=== PATIENT | female | born 1955 | race Caucasian/White ===

== ENCOUNTER 2020-10-23 07:49 | Outpatient (CLI) | payer MEDICARE, SELFPAY ==
[2020-10-23 08:51] LABS: Basophils Absolute Auto 0.1 K/mm3 (0.0-0.1); Basophils Percent Auto 0.6 % (0.2-1.2); Eosinophils Absolute Auto 0.4 K/mm3 (0-0.3); Eosinophils Percent Auto 2.6 % (0-4.4); Hematocrit 36.2 % (37.0-47.0); Hemoglobin 11.1 g/dL (12.0-15.0); Immature Granulocyte Absolute 0.04 K/mm3 (0.00-0.031); Immature Granulocyte Percent A 0.3 % (0-0.5); Lymphocytes Absolute Auto 4.73 K/mm3 (0.9-3.2); Lymphocytes Percent Auto 32.8 % (18.3-44.2); Mean Corpuscular HGB Conc 30.7 g/dl (32-36); Mean Corpuscular Hemoglobin 27.3 pg (26-34); Mean Corpuscular Volume 88.9 fl (80-100); Mean Platelet Volume 11.5 fl (7.4-10.4); Monocytes Absolute Auto 1.5 K/mm3 (0.1-0.6); Monocytes Percent Auto 10.2 % (2.6-8.5); Neutrophils Absolute Auto 7.7 K/mm3 (1.3-6.7); Neutrophils Percent Auto 53.5 % (45.5-73.1); Platelet Count Result 324 k/mm3 (150-375); Red Blood Count 4.07 M/mm3 (4.2-5.4); Red Cell Distribution Width 16.9 % (11.5-14.5); White Blood Count 14.4 K/mm3 (4.5-10.0)
[2020-10-23 09:00] LABS: Hemoglobin A1C 10.1 % (<5.7)
[2020-10-23 09:04] LABS: Alanine Aminotransferase 17 U/L (4-35); Albumin Level 3.5 g/dL (3.5-5.1); Alkaline Phosphatase 86 U/L (38-126); Anion Gap 6 mmol/L (8-16); Aspartate Amino Transferase 24 U/L (14-36); Bilirubin,Total 0.3 mg/dL (0.2-1.3); Blood Urea Nitrogen 30 mg/dL (7-17); Carbon Dioxide 37 mmol/L (22-30); Chloride 94 mmol/L (98-107); Cholesterol 137 mg/dL (0-200); Estimated Glomerular Filt Rate 24; Glucose 222 mg/dL (65-105); HDL Direct 37 mg/dL; Potassium 4.2 mmol/L (3.4-5.0); Sodium 137 mmol/L (137-145); Triglycerides 354 mg/dL (<150)
[2020-10-23 09:05] LABS: Albumin Level 3.5 g/dL (3.5-5.1); Anion Gap 5 mmol/L (8-16); Blood Urea Nitrogen 31 mg/dL (7-17); Carbon Dioxide 36 mmol/L (22-30); Chloride 96 mmol/L (98-107); Estimated Glomerular Filt Rate 24; Glucose 222 mg/dL (65-105); Magnesium 2.5 mg/dL (1.6-2.3); Phosphorus 5.2 mg/dL (2.5-4.5); Potassium 4.2 mmol/L (3.4-5.0); Sodium 137 mmol/L (137-145)
[2020-10-23 09:15] LABS: LDL Cholesterol Direct 40 mg/dL; Parathyroid Intact 224.2 pg/mL (7.5-53.5)
[2020-10-23 09:45] LABS: Free T4 Free Thyroxine 1.01 ng/mL (0.78-2.19)
[2020-10-23 09:53] LABS: Add Urine Microscopic? YES; Appearance Urine Clear (Clear); Bacteria Urine Trace /hpf; Bilirubin Urine Negative (Negative); Blood Urine Negative (Negative); Color Urine Yellow (Yellow); Glucose Urine UA 3+ mg/dL (Negative); Ketones Urine Negative (Negative); Leukocyte Esterase Ur Negative LEU/UL (NEGATIVE); Nitrate Urine Negative (Negative); Protein Urine 3+ mg/dL (Negative); RBC Urine 0-2 /hpf (0-2); Specific Grav Ur 1.016 (1.001-1.035); Squamous Epithelial Cell Urine Moderate /hpf (Few); Urobilinogen Urine Negative mg/dL (<2.0)
[2020-10-23 10:04] LABS: Vitamin D 25 Hydroxy < 12.8 ng/mL
[2020-10-23 11:39] LABS: Microalbumin Urine Random > 1140.0 mg/L (0-16.7)
== END 2020-10-23 07:50 | disposition home or self-care (01) ==
PROVIDERS: PCP Internal Medicine; Referring Provider Internal Medicine Nephrology; Visit Provider Nurse Practitioner
DX: E78.2 Mixed hyperlipidemia (principal); Z79.899 Other long term (current) drug therapy; E11.42 Type 2 diabetes mellitus with diabetic polyneuropathy; Z79.4 Long term (current) use of insulin; E55.9 Vitamin D deficiency, unspecified; R25.2 Cramp and spasm; N18.4 Chronic kidney disease, stage 4 (severe)
CPT/HCPCS: 36415; 80053; 80061; 80069; 81001; 82043; 82306; 83036; 83735; 83970; 84439; 84443; 84550; 85025

== ENCOUNTER 2021-01-04 10:22 | Outpatient (CLI) | payer MEDICARE, SELFPAY ==
--- NOTE | 2021-01-04 16:17 | P.NEURO_ITS ---
Neurology EEG Report TEST EEG DIAGNOSIS tremors CONDITION OF RECORDING awake drowsy and sleep CLINICAL HISTORY patient reported she has been having tremors for a while and seemed to be get ting worse. EEG DESCRIPTION basic resting occipital frequency consists of small amount of fairly well- organized low to medium voltage 8 to 9 hertz per 2nd alpha admixed with low to medium voltage 6 to 7 hertz per 2nd theta. During drowsiness low-voltage beta activity seen diffusely. Bilateral symmetrical sleep activity seen during sleep. non paroxysmal. Nonfocal. Nonlateralizing. IMPRESSION Questionably abnormal record due to the presence of excessive amount of theta activity. clinical correlation recommended these abnormalities could be suggestive for underlying organic or metabolic encephalopathy there is no evidence of paroxysmal activity throughout the tracing
== END 2021-01-04 10:23 | disposition home or self-care (01) ==
LOC: ANHNEURO 10:23
PROVIDERS: PCP Internal Medicine; Visit Provider Psychiatry & Neurology Neurology
DX: R25.1 Tremor, unspecified (principal); R94.01 Abnormal electroencephalogram [EEG]
CPT/HCPCS: 95816

== ENCOUNTER 2023-10-08 14:21 | Outpatient (CLI) | payer MEDICARE, SELFPAY ==
--- NOTE | ~2023-10-08 | MM_ITS ---
EXAMINATION: MM screening [facility] BI w bella HISTORY: Screening mammogram TECHNIQUE: Craniocaudal and mediolateral oblique 3-D tomosynthesis images were obtained and synthetic 2-D images were generated. CAD analysis was submitted and interpreted. COMPARISON: 02/26/2018, 10/12/2015, 03/31/2005 BREAST PARENCHYMAL COMPOSITION: There are scattered areas of fibroglandular density. FINDINGS: No suspicious mass, calcification, or architectural distortion are identified in either carmina ast to suggest malignancy. There has been no suspicious interval change. IMPRESSION: 1. No mammographic evidence of malignancy. 2. Recommend routine screening mammography in one year. BI-RADS Category 1: Negative Reviewed, dictated and finalized at location A. IST HELPER
== END 2023-10-08 14:22 | disposition home or self-care (01) ==
PROVIDERS: PCP Family Medicine; Visit Provider Nurse Practitioner
DX: Z12.31 Encounter for screening mammogram for malignant neoplasm of breast (principal)
CPT/HCPCS: 77063; 77067

== ENCOUNTER 2024-07-01 12:50 | Outpatient (CLI) | payer MEDICARE, SELFPAY ==
--- NOTE | ~2024-07-01 | XR_ITS ---
Right elbow Technique: AP and lateral views were obtained. Clinical History: Pain Findings: No acute fracture or dislocation is seen. Osseous alignment is anatomic. Joint spaces are p reserved. There is no displacement of the fat pads, and soft tissues are unremarkable. Impression: Unremarkable radiographs. Reviewed, dictated and finalized at location . Impression: Unremarkable radiographs.
== END 2024-07-01 12:51 | disposition home or self-care (01) ==
LOC: ANHIMG 12:50
PROVIDERS: PCP Family Medicine; Visit Provider Nurse Practitioner Family
DX: M25.521 Pain in right elbow (principal)
CPT/HCPCS: 73070

== ENCOUNTER 2025-01-24 10:13 | Outpatient (CLI) | payer MEDICARE, SELFPAY | END 2025-01-24 10:14 | disposition home or self-care (01) | PROVIDERS: PCP Family Medicine; Visit Provider Family Medicine | DX: Z12.31 Encounter for screening mammogram for malignant neoplasm of breast (principal) | CPT/HCPCS: 77063; 77067 ==

== ENCOUNTER 2025-03-01 12:06 | Outpatient (CLI) | payer MEDICARE, SELFPAY ==
--- NOTE | ~2025-03-01 | DEXA_ITS ---
Bone Density Report Name: JOELLE HOOVER Age: 69 Sex: Female Ethnicity: White Date of : 1955 Indication: postmenopausal; screening for osteoporosis; height loss; hysterectomy; Referring Provider: ZARINA LOPES Study: Bone densitometry was performed. Exam Date: March 01, 2025 Accession number: [id number] Bone Density: Region BMD T-score Z-score Classification AP Spine(L1-L4) 0.858 -1.7 0.2 Osteopenia Femoral Neck (Left) 0.505 -3.1 -1.4 Osteoporosis Total Hip (Left) 0.486 -3.7 -2.4 Osteoporosis Femoral Neck (Right) 0.480 -3.3 -1.7 Osteoporosis Total Hip (Right) 0.576 -3.0 -1.6 Osteoporosis Total Hip Mean 0.531 -3.4 -2.0 Osteoporosis World Health Organization criteria for BMD impression classify patients as: Normal (T-score at or above -1.0), Osteopenia (T-score between -1.0 and -2.5), or Osteoporosis (T-score at or below -2.5). 10-year Fracture Risk: FRAX not reported because: Some T-score for Spine Total or Hip Total or Femoral Neck at or below -2.5 Clinical Information Provided by Patient: Smokes Has used the following medications: Vitamin D Has the following medical conditions: Hysterectomy Patient maximum height was 60 Menopause Age: 40 No regular weight bearing exercise Does not regularly consume dairy products Drinks caffeinated beverages Onset of menses at age 17 Number of children 0 Missed period for more than 6 months in a row Impression: The patient has osteoporosis, based on the Left Total Hip T-score. The patient has risk factors, including: smoking. Discussion: HIGH RISK OF FRACTURE. BONE DENSITY IS UNDESIRABLY LOW AT ONE OR MORE SKELETAL SITES, CONSISTENT WITH OSTEOPOROSIS. ALSO, BONE DENSITY IS LOWER THAN EXPECTED FOR AGE AND SEX AT ONE OR MORE SKELETAL SITES; RECOMMEND A DILIGENT SEARCH FOR SECONDARY CAUSES OF BONE LOSS. This patient's lowest T-score meets the World Health Organization's (WHO) criteria for osteoporosis at one or more sites (T-score -2.5 or below). In untreated patients, the risk of osteoporotic fracture increases approximately two-fold for each 1.0 SD decrease in T-score. Low bone density is not the only risk factor for fracture; also consider factors such as patient's age, frailty or poor health, risk of falling, risk of injury, previous osteoporotic fracture, family history of osteoporosis, cigarette smoking, low body weight, etc. Not everyone with low bone mineral density has osteoporosis; osteomalacia and other metabolic bone disorders should also be considered. Patients who have osteoporosis should be evaluated for specific diseases and conditions (secondary causes) that may cause or contribute to bone loss. The [place] [employer] (AACE) and National Osteoporosis Foundation (NOF) recommend pharmacologic intervention for all postmenopausal women whose T-score is in this range. Also, this patient's bone mineral density is below the range considered normal for healthy age-, sex-, and race-matched controls at least one site (Z-score -2.0 or below). This warrants careful evaluation for diseases and conditions that may contribute to accelerated bone loss. The patient should follow a healthful lifestyle (good nutrition with adequate calcium and vitamin D, and appropriate weight-bearing exercise). Follow-Up: Consider a repeat BMD and Vertebral Fracture Assessment (VFA) exam in 2 years or sooner if medically necessary, to reassess this patient's status. Reported by: PURNIMA on 03/01/2025 12:42:00 PM. Reviewed, dictated and finalized at location ABrianna REY
--- OUTSIDE RECORDS SUMMARY | 2025-03-01 13:32 | XMS_ITS | Encounter Summary ---
Author Organization [facility] Address [address] [facility] [place] [address] Care Team Providers Care Counterintelligence Analyst Name Role Phone Dilan Gonzalez MD Unavailable [phone] Jamie Hidalgo MD Unavailable [phone] Ranjana Astudillo MD Unavailable [phone] Cuco Negrete DO Primary Care Provider Reason for Referral * Radiology Services (Routine) - Closed Specialty Diagnoses / Procedures Referred By Mike mccarty Referred To Contact Vascular Lab Diagnoses ESRD (end stage renal disease) (HCC) Procedures VAS Bilat Mapping for Hemodialysis Aster Otero APRN-CNP [id number] [facility] [address] [place] [address] [facility] Op Vascular Lab [address] [facility], [address] [place] [address] Referral ID Status Reason Start Date Expiration Date Visits Re quested Visits Authorized [id number] Closed 02/16/2025 02/27/2025 1 1 Reason for Visit * Radiology Services (Routine) - Closed Specialty Diagnoses / Procedures Referred By Mike mccarty Referred To Contact Vascular Lab Diagnoses ESRD (end stage renal disease) (HCC) Procedures VAS Bilat Mapping for Hemodialysis Aster Otero, FRAME PULLEY MORTISING MACHINE OPERATOR-INTERNATIONAL RELATIONS PROFESSOR [address] [facility] [address] [place] [address] [facility] [address] [facility], [address] [place] [address] Referral ID Status Reason Start Date Expiration Date Visits Re quested Visits Authorized [id number] Closed 02/16/2025 02/27/2025 1 1 Encounter Details Date Type Department Care Team (Latest Contact Info) Description 02/27/2025 2:00 PM CDT - 02/27/2025 11:59 PM CDT Hospital Encounter [facility] [address] [facility], [address] [place] [address] [place] [address] [facility] [address] [place] [address] Discharge Disposition: Home or Self Care Social History Tobacco Use Types Packs/Day Years Used Date Smoking Tobacco: Every Day Cigarettes 0.5 55.3 Started: [birth year]/23/1969 Smokeless Tobacco: Never Alcohol Use Standard Drinks/Week Comments No 0 (1 standard drink = 0.6 oz pur e alcohol) Hunger Vital Sign Answer Date Recorded Within the past 12 months, y ou worried that your food would run out before you got the money to buy more. Never true 05/06/20 22 Within the past 12 months, t he food you bought just didn't last and you didn't have money to get more. Never true 05/06/2022 Sex and Gender Information Value Date Recorded Sex Assigned at Not on file Gender Identity Not on file Sexual Orientation Not on file documented as of this encounter Functional Status Functional Status Response Date of Assess ment Is person deaf or have serious hearing difficult y? No 05/06/2022 Is person blind or have serious difficulty seein g? No 05/06/2022 Does person have serious dif ficulty walking/climbing stairs? No 05/06/2022 Does person have difficulty dressing/bathing? No 05/06/2022 Does person have difficulty doing errands alone? Yes 05/06/2022 Cognitive Status Response Date of Assessm ent Does person have difficulty concentrating/remembering/making decisions? No 05/06/2022 documented as of this encounter Medications at Time of Discharge Medication Sig Dispensed Refills Start Date End Date ALPRAZolam (XANAX) 0.5 MG tablet Take 1 (one) tablet by mouth every 8 hours as needed 0 09/27/2018 ANORO ELLIPTA 62.5-25 MCG/INH inhaler Inhale 1 (one) puff by mouth once daily 04/05/2021 Aspirin Low Dose 81 MG tablet Take 1 (one) tablet by mouth once daily 10/12/2024 B Complex Vitamins (vitamin B complex) CAPS capsule Take 1 (one) capsule by mouth once daily 01/02/2025 B-D ULTRAFINE III SHORT PEN 31G X 8 MM needle USE ON INSULIN PENS 4 TIMES DAILY 02/22/2025 carisoprodol (SOMA) 350 MG tablet Take 1 (one) tablet by mouth 3 times daily as needed for Muscle Spasms 10 tablet 05/10/2022 cinacalcet (Sensipar) 30 MG tablet Take 1 (one) tablet by mouth daily with breakfast diclofenac sodium (Voltaren) 1 % gel Apply topically ferrous sulfate EC 325 (65 Fe) MG tablet Take 1 (one) tablet by mouth daily with breakfast gabapentin (NEURONTIN) 100 MG capsule Take 1 (one) capsule by mouth 1 tab in the a.m. and 2 tab. in the p.m. 02/20/2020 HUMALOG KWIKPEN 100 UNIT/ML pen Inject 15 (fifteen) Units subcutaneously 3 times daily before meals 05/22/2016 insulin glargine (Lantus/Semglee) 100 units/mL pen Inject 30 (thirty) Units subcutaneously at bedtime 05/10/2022 lamoTRIgine (LAMICTAL) 25 MG tablet Take 2 (two) tablets by mouth once daily Lancets (ONETOUCH DELICA PLUS 33G EXTRA FINE LANCET) USE TO TEST BLOOD SUGAR 3 TIMES DAILY 02/15/2025 magnesium oxide (MAG-OX) 400 MG tablet Take 2 (two) tablets by mouth 2 times daily metoprolol succinate XL 24hr (TOPROL XL) 50 MG tablet Take 1 (one) tablet by mouth 2 times daily nitroGLYCERIN (NITROSTAT) 0.[address] 1 TABLET UNDER TONGUE EVERY 5 MINS, UP TO 3 DOSES NEEDED FOR CHEST PAIN 02/06/2022 omeprazole (PRILOSEC) 40 MG capsule Take 1 (one) capsule by mouth 2 times daily, before breakfast and supper 1 10/14/2018 OneTouch Verio test strip TEST 3 TIMES DAILY DIRECTED primidone (Mysoline) 50 MG tablet Take 2.5 (two and one-half) tablets by mouth 2 times daily rosuvastatin (Crestor) 40 MG tablet Take 1 (one) tablet by mouth once daily 02/15/2021 sevelamer carbonate (Renvela) 800 MG Take 1 (one) tablet by mouth 3 times daily with meals tiotropium (Spiriva) 18 MCG inhalation capsule Inhale 1 (one) capsule by mouth once daily triamcinolone acetonide (Kenalog) 0.5 % cream Apply to affected area 2 times daily 07/08/2023 vitamin B-12 (CYANOCOBALAMIN) 500 MCG tablet Take 1 (one) tablet by mouth once daily 03/27/2022 vitamin D, cholecalciferol, 50 MCG (2000 UT) tablet Take 1 (one) tablet by mouth once daily 01/04/2021 documented as of this encounter Plan of Treatment Upcoming Encounters Date Type Department Care Team (Latest Contact Info) Description 03/21/2025 8:50 AM CDT Hospital Encounter [facility] - Perioperative Surgery [address] [place] [address] [id number] Jamie Hidalgo MD [address] [place] [id number] Surgery General 03/21/2025 8:50 AM CDT - 03/21/2025 10:13 AM CDT Surgery [facility] - Perioperative Surgery [address] [place] [address] [id number] [place] [address] [address] LEFT UPPER ARM ARTERIOVENOUS FISTULA 03/21/2025 9:00 AM CDT Procedure visit [facility] - Surgery [address] [place] [address], [address] [address] Jamie Hidalgo MD [address] [place] [phone] 04/10/2025 12:30 PM CDT Office Visit [facility] - Surgery [address] [place] [address], [address] [place] [address] [place] [address] [facility] [address] [place] [address] Scheduled Procedures Name Priority Associated Diagnoses Date/Ti me CREATION ARTERIOVENOUS (AV) FISTULA DIRECT 03/21/2025 8:50 AM C DT documented as of this encounter Procedures Procedure Name Priority Date/Time Associated Diagnosis Comments VAS BILAT MAPPING FOR HEMODIALYSIS Routine 02/27/2025 2:49 PM CDT ESRD (end stage renal disease) documented in this encounter Results * VAS Bilat Mapping for Hemodialysis (02/27/2025 2:49 PM CDT) Anatomical Region Laterality Modality Lower Extremity, Upper Extremity Ultrasound 02/27/2025 2:28 PM CDT Narrative Procedure Note Jamie Hidalgo MD - 02/27/2025 [facility] Vascular [address], Suite [facility] [phone] [place] [address] Vessel Mapping for Hemodialysis Report Pat.Name: ELIZABETH HYMAN Pat.ID: [id number] .Date: 02/27/2025 Exam Time: 2:28:00 PM Study Type:Vessel Mapping for Hemodialysis Age: 7 1955,69Y Sex: FEMALE Sonogrphr: Emanuel Bhandari RVT Pat. Stat.:Outpatient CPT - 4: 99824 Reason for Study: End Stage Renal Disease Procedures: Vessel Mapping for Hemodialysis Race: 2 Visit ID: [id number] ++++++++++++++++++++++++++++++++++++ SUMMARY: ++++++++++++++++++++++++++++++++++++ Patent axillary vein in the left arm. ++++++++++++++++++++++++++++++++++++ FINDINGS: ++++++++++++++++++++++++++++++++++++ Procedure: Duplex vein mapping was carried out in the left upper extremity. Study Quality: This study is of adequate technical quality. Mapping Lt: The left basilic vein in the axilla measured .86 cm and the axillary vein measured .54 cm. Signed 02/27/2025 02:53 PM Jamie Hidalgo MD Aster Otero FRAME PULLEY MORTISING MACHINE OPERATOR-INTERNATIONAL RELATIONS PROFESSOR [facility] documented in this encounter Visit Diagnoses Diagnosis ESRD (end stage renal disease) End stage renal disease documented in this encounter Care Teams Counterintelligence Analyst Relationship Specialty Start Date End Date Cuco Negrete DO [address] [place] [address] PCP - General Internal Medicine 06/19/22 [place] [address] [phone] Cardiovascular Disease 03/21/13 [place] [address] [facility] [address] [place] [phone] Vascular Surgery 01/23/14 [place] [address] [facility] [address] [place] [address] Endocrinology 07/31/14 documented as of this encounter
--- OUTSIDE RECORDS SUMMARY | 2025-03-01 13:32 | XMS_ITS | Encounter Summary ---
Author Organization [facility] Address [address] [place] [address] Care Team Providers Care Hat Brusher Machine Name Role Phone Rome Downing MD Unavailable [phone] Cuco Negrete DO Primary Care Provider [phone] Trey Turcios MD Primary Care Provider [phone] Vern Webster MD Primary Care Provider [phone] Encounter Details Date Type Department Care Team (Late st Contact Info) Description 04/22/2022 Hospital Orders Only [facility] [place] [address] Stone Araujo MD,PHD Social History Tobacco Use Types Packs/Day Years Used Date Smoking Tobacco: Every Day Cigarettes 0.5 45 Smokeless Tobacco: Never Alcohol Use Standard Drinks/Week Comments Not Currently 0 (1 standard drink = 0.6 oz pur e alcohol) AUDIT-C Answer Date Recorded Frequency of Alcohol Consumption Never 06/05/2019 Average Number of Drinks Not on file 019 Frequency of Binge Drinking Not on file 05/23 Comments No Sex and Gender Information Value Date Recorded Sex Assigned at Female 06/05/2019 8:21 AM CDT Legal Sex Female 2:41 PM CDT Gender Identity Female 06/05/2019 8:21 AM CDT Sexual Orientation Not on file COVID-19 Exposure Response Date Recorded In the last 10 days, have yo u been in contact with someone who was confirmed or suspected to have Coronavirus/COVID-19? No / Unsure 04/25/2022 11:20 AM CDT documented as of this encounter Functional Status * RETIRED Are you deaf or do you have serious difficulty hearing Answer Date of Assessment Author Status No 03/24/2022 3:48 AM CDT Activ e * RETIRED Are you blind or do you have serious difficulty seeing, even when wearing glasses? Answer Date of Assessment Author Status No 03/24/2022 3:48 AM CDT Activ e * Do you have serious difficulty walking or climbing stairs? Answer Date of Assessment Author Status No 03/24/2022 3:48 AM CDT Luanne Le RN Active * Do you have difficulty dressing or bathing? Answer Date of Assessment Author Status No 03/24/2022 3:48 AM CDT Luanne Le RN Active * Because of a physical, mental, or emotional condition, do you have difficulty doing errands alone such as visiting a doctor's office or shopping? Answer Date of Assessment Author Status No 03/24/2022 3:48 AM CDT Luanne eL RN Active documented as of this encounter Mental Status * Because of a physical, mental, or emotional condition, do you have serious difficulty concentrating, remembering, or making decisions? Answer Entry Date Author Status No 03/24/2022 3:48 AM ELAINAT Luanne Le RN Active documented in this encounter H&P Notes * Matthew Rutledge MD - 04/22/2022 11:20 PM CDT Attending Provider: No att. providers found PCP: Vern Webster MD Elizabeth Hyman is an 68-year-old female. Reason for Admission: * No active hospital problems. * Reason for Visit: Follow Up (Watchman follow up) History of Present Illness: Elizabeth Hyman is a 68-year-old woman being seen today for followup of coronary artery disease status post PCI, heart failure with preserved ejection fraction, paroxysmal atrial fibrillation. Since her last visit, she underwent watchman implant. She continues to have some occasional transient sharp pain in her left groin, no swelling, bruising, radiating pain, weakness. She denies any current exertional or heart failure symptoms. Assessment and plan: PROBLEM LIST: 1. Paroxysmal atrial fibrillation. 2. Heart failure with preserved EF 3. COPD on home oxygen. 4. CKD followed by Dr. Morejon. 5. History of multiple abdominal surgeries including infected mesh requiring removal, colostomy in place. 6. Diabetes. 7. PHILIP, not on CPAP 8. Acute anemia on triple therapy, presumed GI bleed without source identified, 05/04/22 requiring transfusion 9. CAD A. 04/23/22 [facility] PCI for NSTEMI PLAN Paroxysmal atrial fibrillation: She remains on Xarelto and rate controlled. Given her GI bleed last year, albeit on triple therapy,a watchman to be a reasonable alternative to continued anticoagulation. She underwent watchman implant 01/19/2024, we will arrange for follow-up CT imaging and discussed the role for discontinuing Xarelto once CT imaging confirms a good Watchman seal. Dyslipidemia: 08/2023 labs included LDL 38. She remains on high-intensity statin. I will plan to see her back in 3 months unless issues arise in the interim. Thank you very much for allowing me to participate in the care of your patient. Please feel free tocontact me with any further questions or concerns. Past Medical History: Diagnosis Date Chronic systolic (congestive) heart failure ([facility]) COPD (chronic obstructive pulmonary disease) ([facility]) Coronary artery disease Diabetes mellitus ([facility]) Hyperlipemia Hypertension NSTEMI (non-ST elevated myocardial infarction) ([facility]) PHILIP (obstructive sleep apnea) Paroxysmal atrial fibrillation ([facility]) Renal failure, chronic, stage 3 (moderate) ([facility]) Allergies: Review of patient's allergies indicates: Allergen Reactions Ciprofloxacin Rash Amoxicillin Nausea and Vomiting Latex Hives Anaphylactic shock Sulfa Antibiotics Nausea and Vomiting Sulfamethoxazole-Trimethoprim Nausea and Vomiting Tape Other (see comment) blisters Trimethoprim Nausea and Vomiting Social History Tobacco Use Smoking status: Every Day Current packs/day: 0.50 Average packs/day: 0.5 packs/day for 45.0 years (22.5 ttl pk-yrs) Types: Cigarettes Smokeless tobacco: Current Substance Use Topics Alcohol use: Not Currently Past Surgical History: Procedure Laterality Date ABDOMINAL SURGERY APPENDECTOMY COLON SURGERY COLOSTOMY HERNIA REPAIR HYSTERECTOMY LAPAROSCOPIC CHOLECYSTECTOMY ONC PEDS NURSING COMMUNICATION CONFIRM LABS PRIOR TO IRON INFUSION STOMACH SURGERY PROCEDURE UNLISTED Family History Problem Relation Name Age of Onset Diabetes Mother Diabetes Father Diabetes Other Travel Exposure: Current Outpatient Medications on File Prior to Visit Medication Sig ALPRAZolam 0.5 MG tablet Take 1 tablet (0.5 mg total) by mouth 3 (three) times daily as needed. gabapentin 100 MG capsule Take 1 capsule (100 mg total) by mouth 2 (two) times daily. gabapentin 100 MG capsule Take 2 capsules (200 mg total) by mouth nightly at bedtime. insulin glargine 100 UNIT/ML injection (PEN) Inject 52 Units into the skin after dinner. lamoTRIgine 25 MG tablet Take 3 tablets (75 mg total) by mouth daily. Magnesium Oxide 400 MG Cap Take 1 tablet by mouth 2 (two) times daily. metoprolol succinate ER 50 MG 24 hr tablet Take 1 tablet (50 mg total) by mouth 2 (two) times daily. omeprazole 40 MG capsule Take 1 capsule (40 mg total) by mouth 2 (two) times daily. umeclidinium-vilanterol (ANORO ELLIPTA) 62.5-25 MCG/INH inhaler Inhale 1 puff into the lungs daily. vitamin B-12 500 MCG tablet Take 1 tablet (500 mcg total) by mouth daily. Vitamin D3, cholecalciferol, 2000 UNIT Tab tablet Take 2 tablets (4,000 Units total) by mouth daily. No current facility-administered medications on file prior to visit. There were no vitals taken for this visit. Review of Systems Constitutional: Negative for chills, fever and weight loss. All other systems reviewed and are negative. Physical Exam Constitutional: General: She is not in acute distress. Appearance: She is well-developed. HENT: Nose: No mucosal edema. Mouth/Throat: Pharynx: No oropharyngeal exudate. Neck: Vascular: No carotid bruit or JVD. Cardiovascular: Rate and Rhythm: Normal rate and regular rhythm. No extrasystoles are present. Heart sounds: S1 normal and S2 normal. No murmur heard. No gallop. Pulmonary: Effort: Pulmonary effort is normal. No respiratory distress. Breath sounds: Normal breath sounds. Abdominal: Palpations: There is no mass. Tenderness: There is no abdominal tenderness. Musculoskeletal: General: No deformity. Cervical back: Neck supple. Right lower leg: No edema. Left lower leg: No edema. Skin: General: Skin is warm and dry. Findings: No erythema. Neurological: Mental Status: She is alert and oriented to person, place, and time. Psychiatric: Behavior: Behavior normal. Thought Content: Thought content normal. MATTHEW RUTLEDGE MD 04/21/2024 documented in this encounter Plan of Treatment Upcoming Encounters Date Type Department Care Team (Late st Contact Info) Description 05/24/2025 8:40 AM CDT Office Visit [facility] [address] [place] [address] Cesar Lucero MD [address] [facility] [address] [place] [address] 06/08/2025 2:15 PM CDT Office Visit [facility] [address] [place] [phone] Rome Downing MD Three [facility]. [facility] [address] [place], [place] [id number] documented as of this encounter Visit Diagnoses Not on filedocumented in this encounter Care Teams Hat Brusher Machine Relationship Specialty Start Date End Date Cuco Negrete DO [address] [facility] [address] [place] [address] PCP - General INTERNAL MEDICINE 06/14/19 12/24/22 Trey Turcios MD [address] [facility] [address] [place] [address] PCP - General INTERNAL MEDICINE 12/25/22 06/06/23 Vern Webster MD [address] [place] [address] PCP - General FAMILY PRACTICE 06/07/23 Rome Downing MD [facility]. [facility] [address] [place], [place] [address] [employer] Analytical Scientist CARDIOVASCULAR DISEASE 06/13/19 documented as of this encounter
--- OUTSIDE RECORDS SUMMARY | 2025-03-01 13:32 | XMS_ITS | Encounter Summary ---
Author Organization [facility] Address [address] [place] [address] Phone Care Team Providers Care Machine Baster Name Role Phone Vern Webster MD Primary Care Provider Reason for Visit * Reason Comments Med Refill Encounter Details Date Type Department Care Team (Late Contact Info) Description 07/23/2020 Refill [facility] [address] [facility] 1 [place], [place] [phone] Dale Morejon MD [address] [address] Social History Tobacco Use Types Packs/Day Years Used Date Smoking Tobacco: Every Day Cigarettes Smokeless Tobacco: Never Alcohol Use Standard Drinks/Week Comments Never 0 (1 standard drink = 0.6 oz pur e alcohol) AUDIT-C Answer Date Recorded Frequency of Alcohol Consumption Never 06/03/2019 Average Number of Drinks Not on file 019 Frequency of Binge Drinking Not on file 05/23 Comments Unknown Sex and Gender Information Value Date Recorded Sex Assigned at Not on file Legal Sex Female 9:32 AM MST Gender Identity Not on file Sexual Orientation Not on file documented as of this encounter Plan of Treatment Upcoming Encounters Date Type Department Care Team (Late st Contact Info) Description 05/09/2025 12:40 PM CDT Office Visit [facility] [address], [address] [place] [address] Dale Morejon MD [address] [facility] [address] [place] [address] documented as of this encounter Visit Diagnoses Not on filedocumented in this encounter Care Teams Machine Baster Relationship Specialty Start Date End Date Vern Webster MD PCP - General Family Medicine 02/01/25 documented as of this encounter
--- OUTSIDE RECORDS SUMMARY | 2025-03-01 13:32 | XMS_ITS | Encounter Summary ---
Author Organization [facility] Address [address] [place] [address] Phone Care Team Providers Care Supervising Nurse Name Role Phone Vern Webster MD Primary Care Provider [phone] Reason for Visit * Reason Comments Med Refill Encounter Details Date Type Department Care Team (Late Contact Info) Description 10/08/2020 Refill [facility] [address] [facility] 1 [place], [place] [phone] Dale Morejon MD [address] [facility] [address] [place] [address] Social History Tobacco Use Types Packs/Day [...] on file documented as of this encounter Miscellaneous Notes * Telephone Encounter - Jyoti Lee RN - 10/08/2020 9:56 AM CST Refused refill for Losartan as pt called and stated dose was changed per early childhood assistant; explained topt if that doctor changed dose they should call in a new script 10/08/2020 mm documented in this encounter Plan of Treatment Upcoming Encounters Date Type Department Care Team (Late Contact Info) Description 05/09/2025 12:40 PM CDT Office Visit [facility] [address] [place] [address] Dale Morejon MD [address] [address] documented as of this encounter Visit Diagnoses Not on filedocumented in this encounter Care Teams Supervising Nurse Relationship Specialty Start Date End Date Vern Webster MD PCP - General Family Medicine 02/01/25 documented as of this encounter
--- OUTSIDE RECORDS SUMMARY | 2025-03-01 13:32 | XMS_ITS | Encounter Summary ---
Author Organization [facility] Address [address] [place] [address] Care Team Providers Care Muffler Installer Name Role Phone Rome Downing MD Unavailable Cuco Negrete DO Primary Care Provider [phone] Trey Turcios MD Primary Care Provider [phone] Vern Webster MD Primary Care Provider [phone] Encounter Details Date Type Department Care Team (Late st Contact Info) Description 08/28/2022 Therapy Plan [facility] [address] [place] [address] Franklyn Helms MD [address] [place], [place] [address] Social History Tobacco Use Types Packs/Day Years [...] Recorded In the last 10 days, have farrah u been in contact with someone who was confirmed or suspected to have Coronavirus/COVID-19? No / Unsure 08/14/2022 11:45 AM CDT documented as of this encounter [...] 3:48 AM CDT Luanne Le RN Active documented as of this encounter Mental Status * Because of a physical, mental, or emotional condition, do you have serious difficulty concentrating, remembering, or making decisions? Answer Entry Date Author Status No 03/24/2022 3:48 AM CDT Luanne Le RN Active documented in this encounter Plan of Treatment Upcoming Encounters Date Type Department Care Team (Late st Contact Info) Description 05/24/2025 8:40 AM CDT Office Visit [facility] [address] [place] [address] Cesar Lucero MD [address] [place] [address] 06/08/2025 2:15 PM CDT Office Visit [facility] [place] [phone] Rome Downing MD [facility]. [facility] [address] [place], [place] [address] documented as of this encounter Visit Diagnoses Diagnosis Iron deficiency anemia, unspecified- Primary documented in this encounter Care Teams Muffler Installer Relationship Specialty Start Date End Date Cuco Negrete DO [address] [facility] [address] [place], [place] [phone] PCP - General INTERNAL MEDICINE 06/14/19 12/24/22 Trey Turcios MD [address] [facility] [address] [place], [place] [phone] PCP - General INTERNAL MEDICINE 12/25/22 06/06/23 Vern Webster MD [address] [place] [address] PCP - General FAMILY PRACTICE 06/07/23 Rome Downing MD [facility]. [facility] [address] [place], [place] [address] [place] Team Primary Care Physician CARDIOVASCULAR DISEASE 06/13/19 documented as of this encounter
--- OUTSIDE RECORDS SUMMARY | 2025-03-01 13:33 | XMS_ITS | Encounter Summary ---
Author Organization [facility] Address [address] [facility] [place] [address] Care Team Providers Care Sales And Service Technician Name Role Phone Dilan Gonzalez MD Unavailable Jennifer Ramos MD Primary Care Provider [phone] Jamie Hidalgo MD Unavailable Ranjana Astudillo MD Unavailable [phone] Tha Nowak Primary Care Provider Unavailabl e Beth Ackerman RN Unavailable Son Lindquist MD Primary Care Provider Cuco Negrete DO Primary Care Provider Encounter Details Date Type Department Care Team (Late st Contact Info) Description 01/16/2014 SS Outpatient Visit EXTERNAL [place] [address] [facility] [address] [place] [phone] Social History Tobacco Use Types Packs/Day Years Used Date Smoking Tobacco: Every Day Cigarettes 0.5 35 Smokeless Tobacco: Never Comments:1 pack every other day Alcohol Use Standard Drinks/Week Comments No 0 (1 standard drink = 0.6 oz pur e alcohol) Sex and Gender Information Value Date Recorded Sex Assigned at Not on file Gender Identity Not on file Sexual Orientation Not on file documented as of this encounter Plan of Treatment Upcoming Encounters Date Type Department Care Team (Latest Contact Info) Description 03/21/2025 8:50 AM CDT Hospital Encounter [facility] - Perioperative Surgery [address] [place] [phone] Jamie Hidalgo MD [address] [place] [phone] Surgery General 03/21/2025 8:50 AM CDT - 03/21/2025 10:13 AM CDT Surgery [facility] Perioperative Surgery [address] [place] [address] [phone] Jamie Hidalgo MD [address] [place] [phone] LEFT UPPER ARM ARTERIOVENOUS FISTULA 03/21/2025 9:00 AM CDT Procedure visit [address] [address] Jamie Hidalgo MD [address] [place] [phone] 04/10/2025 12:30 PM CDT Office Visit [address] [phone] Jamie Hidalgo MD [address] [place] [phone] Scheduled Procedures Name Priority Associated Diagnoses Date/Ti me CREATION ARTERIOVENOUS (AV) FISTULA DIRECT 03/21/2025 8:50 AM C DT documented as of this encounter Visit Diagnoses Not on filedocumented in this encounter Care Teams Sales And Service Technician Relationship Specialty Start Date End Date Jennifer Ramos MD [address] [place] [phone] PCP - General Internal Medicine 05/09/13 08/16/15 Tha Nowak [address] [facility] [address] [place] [address] PCP - General Family Medicine 08/17/15 02/08/17 Son Lindquist MD [address] [place] [phone] PCP - General Internal Medicine 02/09/17 03/22/19 Cuco Negrete DO [address] [place], [place] [phone] PCP - General Internal Medicine 06/19/22 [place] [address] [facility] [address] [place] [phone] Cardiovascular Disease 03/21/13 [place] [address] [facility] [address] [place] [phone] Vascular Surgery 01/23/14 [place] [address] [facility] [address] [place] [address] Endocrinology 07/31/14 Beth Ackerman, RN [address] [facility] [address] [place] [address] Boatbuilder Apprentice Wood 09/25/15 05/05/22 documented as of this encounter
--- OUTSIDE RECORDS SUMMARY | 2025-03-01 13:33 | XMS_ITS | Encounter Summary ---
Author Organization [facility] Address [address] [facility] [place] [address] Care Team Providers Care Associate Material Handler Name Role Phone Dilan Gonzalez MD Unavailable [phone] Jennifer Ramos MD Primary Care Provider [phone] Jamie Hidalgo MD Unavailable Ranjana Astudillo MD Unavailable Tha Nowak Primary Care Provider Unavailabl e Beth Ackerman RN Unavailable Son Lindquist MD Primary Care Provider [phone] Cuco Negerte DO Primary Care Provider Encounter Details Date Type Department Care Team (Late st Contact Info) Description 01/16/2014 SS Outpatient Visit EXTERNAL NON-[place] [address] [facility] [address] [place] [phone] Social History Tobacco Use Types Packs/Day [...] Description 03/21/2025 8:50 AM CDT Hospital Encounter [facility] - Perioperative Surgery [address] [place] [address] [phone] Jamie Hidalgo MD [address] [place] [phone] Surgery General 03/21/2025 8:50 AM CDT - 03/21/2025 10:13 AM CDT Surgery [facility] Perioperative Surgery [address] [place] [address] [phone] Jamie Hidalgo MD [address] [place] [phone] LEFT UPPER ARM ARTERIOVENOUS FISTULA 03/21/2025 9:00 AM CDT Procedure visit [address] [phone] Jamie Hidalgo MD [address] [place] [phone] 04/10/2025 12:30 PM CDT Office Visit [address] [phone] Jamie Hidalgo MD [address] [place] [phone] Scheduled Procedures Name Priority Associated Diagnoses Date/Ti me CREATION ARTERIOVENOUS (AV) FISTULA DIRECT 03/21/2025 8:50 AM C DT documented as of this encounter Visit Diagnoses Not on filedocumented in this encounter Care Teams Associate Material Handler Relationship Specialty Start Date End Date Jennifer Ramos MD [address] [place] [phone] PCP - General Internal Medicine 05/09/13 08/16/15 Tha Nowak [address] [facility] [address] [place] [address] PCP - General Family Medicine 08/17/15 02/08/17 Son Lindquist MD [address] [place] [phone] PCP - General Internal Medicine 02/09/17 03/22/19 Cuco Negrete DO [address] [place], [place] [phone] PCP - General Internal Medicine 06/19/22 [place] [address] [facility] [address] [place] [phone] Cardiovascular Disease 03/21/13 [place] [address] [facility] [address] [place] [phone] Vascular Surgery 01/23/14 [place] [address] [facility] [address] [place] [address] Endocrinology 07/31/14 Beth Ackerman, RN [address] [facility] [address] [place] [address] Supervisor Machining 09/25/15 05/05/22 documented as of this encounter
--- OUTSIDE RECORDS SUMMARY | 2025-03-01 13:33 | XMS_ITS | Encounter Summary ---
Author Organization [facility] Address [address] [place] [address] Care Team Providers Care Die Maker Bench Stamping Name Role Phone Rome Downing MD Unavailable [phone] Vern Webster MD Primary Care Provider [phone] Reason for Visit * Reason Onset Date Comments Medication Problem 02/28/2025 Encounter Details Date Type Department Care Team (Late st Contact Info) Description 02/28/2025 Telephone [facility] Multispecialty Care - [facility] [address] [facility] [address] [place] [address] Cesar Lucero MD [address] [facility] [address] [place] [address] Medication Problem Social History Tobacco Use Types Packs/Day Years Used Date Smoking Tobacco: Every Day Cigarettes 0.5 45 Smokeless Tobacco: Current Alcohol Use Standard Drinks/Week Comments Not Currently 0 (1 standard drink = 0.6 oz pur e alcohol) AUDIT-C Answer Date Recorded Frequency of Alcohol Consumption Never 06/05/2019 Average Number of Drinks Not on file 019 Frequency of Binge Drinking Not on file 05/23 PHQ-2 Answer Date Recorded PHQ-2 Score - If the patient scores above 3, please move on to questions 3-9 0 09/25/2022 Comments No Sex and Gender Information Value Date Recorded Sex Assigned at Female 06/05/2019 8:21 AM CDT Legal Sex Female 2:41 PM CDT Gender Identity Female 06/05/2019 8:21 AM CDT Sexual Orientation Not on file documented as [...] Le RN Active documented in this encounter Progress Notes * Haley Chakraborty CRT - 03/01/2025 8:58 AM CDTAddended by: HALEY CHAKRABORTY on: 03/01/2025 08:58 AM Modules accepted: Orders * Haley Chakraborty CRT - 03/01/2025 8:57 AM CDT Called patient and mentioned that the Stiolto was sent to the pharmacy. Patient informed and voicedunderstanding * Cesar Lucero MD - 03/01/2025 7:50 AM CDT Would either Stiolto or Bevespi be covered? Cesar Lucero MD * Cesar Rabago RN - 02/28/2025 2:05 PM CDT Spoke with patient at this time. She states she received a letter in the mail stating that the spiriva would not be covered. She requests we switch to an alternative. Asked her if she was sure, because she had previously spoken with her insurance who had listed it as a formulary medication. She states that what the letter states. Informed her we would ask Dr. Lucero if he would be okay sending a different inhaler, her insurance had also stated breo and advair were covered. Message sent to Dr. Lucero. * Phoebe Wray - 02/28/2025 12:41 PM CDT Pt is returning call and is ready for a call back. Please advise, and thank you! Elizabeth [phone] * Cesar Rabago RN - 02/28/2025 11:20 AM CDT Called patient at this time. No answer, voice mail left. * Wanda Monsivais - 02/28/2025 10:13 AM CDT Pt is calling and stated that her insurance is not going to cover the new inhaler, so she needs to go back to the previous inhaler she was on. Please advise and thank you. CB# [phone] documented in this encounter Plan of Treatment Upcoming Encounters Date Type Department Care Team (Late st Contact Info) Description 05/24/2025 8:40 AM CDT Office Visit [facility]ty [facility] - [address] [place] [address] eCsar Lucero MD [address] [facility] [address] [place] [address] 06/08/2025 2:15 PM CDT Office Visit [facility] [address] [place] [phone] Rome Downing MD Three [facility]. [facility] [address] [place] [address] documented as of this encounter Visit Diagnoses Diagnosis Centrilobular emphysema ([facility])- Primary Other emphysema documented in this encounter Care Teams Die Maker Bench Stamping Relationship Specialty Start Date End Date Vern Webster MD [address] [place] [address] PCP - General FAMILY PRACTICE 06/07/23 Rome Downing MD Three [facility]. [address] [place] [address] Michela Pie Crust Mixer CARDIOVASCULAR DISEASE 06/13/19 documented as of this encounter
--- OUTSIDE RECORDS SUMMARY | 2025-03-01 13:33 | XMS_ITS | Encounter Summary ---
Author Organization [facility] Address [address] [place] [address] Phone Care Team Providers Care Fern Cutter Name Role Phone Vern Webster MD Primary Care Provider [phone] Reason for Visit * Reason Comments Med Refill Encounter Details Date Type Department Care Team (Late Contact Info) Description 05/04/2020 Refill [facility] [address] [facility] 1 [place], [place] [phone] Dale Morejon MD [address] [address] Social History Tobacco Use Types [...] Description 05/09/2025 12:40 PM CDT Office Visit [facility] [address], [address] [place] [address] Dale Morejon MD [address] [facility] 1 [place] [address] documented as of this encounter Visit Diagnoses Not on filedocumented in this encounter Care Teams Fern Cutter Relationship Specialty Start Date End Date Vern Webster MD PCP - General Family Medicine 02/01/25 documented as of this encounter
--- OUTSIDE RECORDS SUMMARY | 2025-03-01 13:33 | XMS_ITS | CONTINUITY OF CARE DOCUMENT ---
Author Name isabell whyte Address Unknown Organization [facility] Address [address] [facility] [address] [place] [address] Phone [phone] Care Team Providers Care Bolter Helper Name Role Phone isabell whyte Unavailable Unavailable INSURANCE PROVIDERS Payer name Policy type / Coverage type [place] [employer] party ID [place] [id number] [facility] [id number]
--- OUTSIDE RECORDS SUMMARY | 2025-03-01 13:33 | XMS_ITS | Clinical Summary ---
Author Organization [facility] Address [address] [facility] [place] [address] Care Team Providers Care Combat Rifle Crewmember Name Role Phone Dilan Gonzalez MD Unavailable [phone] Jamie Hidalgo MD Unavailable [phone] Ranjana Astudillo MD Unavailable [phone] Cuco Negrete DO Primary Care Provider [phone] Source Comments [facility],non-owned Affiliates and Associated Physician Practices is amultiple site organization consisting of ambulatory clinics and hospital sitesin [place], [place], [place] and [place]. This disclosure is being madepursuant to the Care Everywhere program and may not contain all information available regarding this patient. Last updated 18.[facility] Allergies Active Allergy Reactions Criticality Noted Date Comments Adhesive Sensitivity Other 07/09/2011 blisters Amoxicillin Nausea and/or Vomiting 08/05/2009 Bactrim Nausea 08/05/2009 Ciprofloxacin Urticaria,Rash Medium 08/15/2020 Latex Urticaria 07/11/2009 Anaphylactic shock Sulfa Drugs Vomiting 06/03/2019 Tapentadol Other 07/09/2011 blisters Trimethoprim Other 06/03/2019 Medications * Be aware that medications may not be up to date on this document. Alwaysverify current medications with the patient. Medication Sig Dispensed Refills Start Date End Date Status HUMALOG KWIKPEN 100 UNIT/ML pen Inject 15 (fifteen) Units subcutaneously 3 times daily before meals 05/22/2016 Active ALPRAZolam (XANAX) 0.5 MG tablet Take 1 (one) tablet by mouth every 8 hours as needed 0 09/27/2018 Active omeprazole (PRILOSEC) 40 MG capsule Take 1 (one) capsule by mouth 2 times daily, before breakfast and supper 1 10/14/2018 Active gabapentin (NEURONTIN) 100 MG capsule Take 1 (one) capsule by mouth 1 tab in the a.m. and 2 tab. in the p.m. 02/20/2020 Active metoprolol succinate XL 24hr (TOPROL XL) 50 MG tablet Take 1 (one) tablet by mouth 2 times daily Active ANORO ELLIPTA 62.5-25 MCG/INH inhaler Inhale 1 (one) puff by mouth once daily 04/05/2021 Active rosuvastatin (Crestor) 40 MG tablet Take 1 (one) tablet by mouth once daily 02/15/2021 Active vitamin D, cholecalciferol , 50 MCG (2000 UT) tablet Take 1 (one) tablet by mouth once daily 01/04/2021 Active vitamin B-12 (CYANOCOBALAMIN ) 500 MCG tablet Take 1 (one) tablet by mouth once daily 03/27/2022 Active ferrous sulfate EC 325 (65 Fe) MG tablet Take 1 (one) tablet by mouth daily with breakfast Active lamoTRIgine (LAMICTAL) 25 MG tablet Take 2 (two) tablets by mouth once daily Active magnesium oxide (MAG-OX) 400 MG tablet Take 2 (two) tablets by mouth 2 times daily Activ e insulin glargine (Lantus/Semglee ) 100 units/mL pen Inject 30 (thirty) Units subcutaneously at bedtime 05/10/2022 Active Additional Information Patient taking differently: 52 UnitsSubcutaneous AT BEDTIME, Reported on 02/27/2025 carisoprodol (SOMA) 350 MG tablet Take 1 (one) tablet by mouth 3 times daily as needed for Muscle Spasms 10 tablet 05/10/2022 Active nitroGLYCERIN (NITROSTAT) 0.[address] 1 TABLET UNDER TONGUE EVERY 5 MINS, UP TO 3 DOSES NEEDED FOR CHEST PAIN 02/06/2022 Active Aspirin Low Dose 81 MG tablet Take 1 (one) tablet by mouth once daily 10/12/2024 Active B Complex Vitamins (vitamin B complex) CAPS capsule Take 1 (one) capsule by mouth once daily 01/02/2025 Active cinacalcet (Sensipar) 30 MG tablet Take 1 (one) tablet by mouth daily with breakfast Active diclofenac sodium (Voltaren) 1 % gel Apply topically Active OneTouch Verio test strip TEST 3 TIMES DAILY DIRECTED Active B-D ULTRAFINE III SHORT PEN 31G X 8 MM needle USE ON INSULIN PENS 4 TIMES DAILY 02/22/2025 Active Lancets (ONETOUCH DELICA PLUS 33G EXTRA FINE LANCET) USE TO TEST BLOOD SUGAR 3 TIMES DAILY 02/15/2025 Active primidone (Mysoline) 50 MG tablet Take 2.5 (two and one-half) tablets by mouth 2 times daily Active sevelamer carbonate (Renvela) 800 MG Take 1 (one) tablet by mouth 3 times daily with meals Active tiotropium (Spiriva) 18 MCG inhalation capsule Inhale 1 (one) capsule by mouth once daily Active triamcinolone acetonide (Kenalog) 0.5 % cream Apply to affected area 2 times daily 07/08/2023 Active aspirin (ASPIRIN) 81 MG chew tablet Take 81 mg by mouth once daily 02/28/20 25 Discontinu ed(List Clean-Up) cyclobenzaprine (FLEXERIL) 10 MG tablet 10 mg 3 times daily as needed 03/29/2021 02/28/20 25 Discontinu ed(List Clean-Up) ticagrelor (BRILINTA) 90 MG tablet Take 1 (one) tablet by mouth 2 times daily 02/28/20 25 Discontinu ed(List Clean-Up) PROAIR HFA 108 (90 Base) MCG/ACT inhaler Inhale 2 (two) puffs by mouth every 4 hours as needed 05/10/2022 02/28/20 25 Discontinu ed(List Clean-Up) losartan (COZAAR) 25 MG tablet Take 0.5 tablets by mouth once daily 06/09/2022 02/28/20 25 Discontinu ed(List Clean-Up) rivaroxaban (XARELTO) 15 MG tablet TAKE 1 TABLET (15 MG TOTAL) BY MOUTH DAILY WITH SUPPER. RESUME 05/23/22 06/09/2022 02/28/20 25 Discontinu ed(List Clean-Up) Active Problems Problem Noted Date Diagnosed Date Other specified hypotension 05/04/2022 Gastrointestinal hemorrhage, unspecified gastrointestinal hemorrhage type 05/04/2022 ESRD (end stage renal disease) 07/08/2021 Open abdominal wall wound 10/08/2020 Epigastric pain 09/01/2016 Left buttock abscess 09/01/2016 Abdominal pain 09/24/2015 Vitamin D deficiency 01/23/2015 Overview (01/23/2015): Controlled with vitamin D, ergocalciferol, (DRISDOL) 01488 UNITS capsule Sepsis 01/12/2015 Acute renal failure 01/12/2015 Diabetes mellitus with chronic kidney disease Overview (01/23/2015): Controlled with NOVOLOG FLEXPEN pen, insulin glargine (LANTUS SOLOSTAR) pen Proteinuria 01/03/2015 CRD (chronic renal disease), stage IV 01/03/2015 Chronic back pain 01/02/[address] 01/02/2015 Insomnia 01/02/2015 Overview (01/23/2015): Controlled with traZODone (DESYREL) 50 MG tablet halfway current use of insulin 07/28/2014 Mixed hyperlipidemia 05/01/2014 Overview (01/23/2015): Controlled with atorvastatin (LIPITOR) 40 MG tablet, fenofibrate (LOFIBRA) 54 MG tablet Herniated disc 06/27/2013 Overview (01/23/2015): Controlled with pregabalin (LYRICA) 75 MG capsule Nausea with vomiting 01/15/2010 Resolved Problems Problem Noted Date Diagnosed Date Resolved Date Cough 09/04/2018 10/02/2018 Chronic renal impairment ass ociated with type 2 diabetes mellitus 01/03/2015 01/03/2015 Insulin dependent type 2 jessica betes mellitus, uncontrolled 06/27/2013 01/03/2015 Overview (07/31/2014): Controlled with insulin glargine (LANTUS SOLOSTAR) pen, NOVOLOG FLEXPEN pen, insulin lispro (HUMALOG) pen Cellulitis and abscess 08/06/200907/31 Overview (08/23/2015): Weakness generalized 08/05/2009 014 Cellulitis and abscess 07/12/200907/20 Overview (08/23/2015): Follow up post op surgery Follow-up examination 07/12/20092008 Postoperative follow-up 07/12/200906/24 Encounters Date Type Department Care Team Description 02/27/2025 2:30 PM CDT Office Visit [facility] - Surgery [address] [place] [address], [address] [place] [address] Jamie Hidalgo MD Encounter regarding vascular access for dialysis for end-stage renal disease (HCC) (Primary Dx); ESRD (end stage renal disease) (HCC) 02/27/2025 2:00 PM CDT - 02/27/2025 11:59 PM CDT Hospital Encounter [facility] [id number] [place] [address], [address] [place] [address] Jamie Hidalgo MD Discharge Disposition: Home or Self Care 02/27/2025 Travel 02/16/2025 Orders Only [facility] - Surgery [address] [place] [address], [address] [place] [address] Aster Otero, POULTRY INSPECTOR-SUPERINTENDENT MENAGERIE ESRD (end stage renal disease) from Last 3 Months Immunizations Name Administration Dates Next Due INFLUENZA VACCINE 09/17/2015,09/06/2014 Influenza Vaccine Whole 08/20/2009(Defer red: - Pt. received on Sat.08/18),08/19/2009 PNEUMOCOCCAL PPSV23 02/12/2010 Family History Medical History Relation Name Comments Cancer Brother 1 Diabetes Father Cancer Mother COPD - Chronic Obstructive Pulmonary Disease Sister 1 Cancer Sister 1 Relation Name Status Comments Brother 1 Brother 2 Alive Brother 3 Alive Brother 4 Alive Brother 5 Alive Father Mother Sister 1 Sister 2 Alive Sister 3 Alive Sister 4 Alive Social History Tobacco Use Types Packs/Day Years Used Date Smoking Tobacco: Every Day Cigarettes 0.5 55.3 Started: 11/23/1969 Smokeless Tobacco: Never Tobacco Cessation:Ready to Q uit: No; Counseling Given: No Alcohol Use Standard Drinks/Week Comments No 0 [...] on file Sexual Orientation Not on file Last Filed Vital Signs Vital Sign Reading Time Taken Comments Blood Pressure 136/98 05/10/2022 1:06 PM CDT Pulse 70 05/10/2022 1:06 PM CDT Temperature 36.8 C (98.2 F) 05/10/2022 1:06 PM CDT Respiratory Rate 20 05/10/2022 1:06 PM CDT Oxygen Saturation 98% 05/10/2022 1:06 PM CDT Inhaled Oxygen Concentration 35% 07/13/2009 6 :00 AM CDT Weight 81.2 kg (179 lb) 06/23/2022 1:03 PM CDT Height 152.4 cm (5') 02/27/2025 2:25 PM CDT Body Mass Index 34.96 06/23/2022 1:03 PM CDT Plan of Treatment Upcoming Encounters Date Type Department Care Team (Latest Contact Info) Description 03/21/2025 8:50 AM CDT Hospital Encounter [facility] - Perioperative Surgery [address] [place] [address] [place] [address] [facility] [address] [place] [phone] Surgery General 03/21/2025 8:50 AM CDT - 03/21/2025 10:13 AM CDT Surgery [facility] - Perioperative Surgery [address] [place] [address] [id number] [place] [address] [facility] [address] [place] [phone] LEFT UPPER ARM ARTERIOVENOUS FISTULA 03/21/2025 9:00 AM CDT Procedure visit [facility] Surgery [address] [facility], [address] [place] [address] [place] [address] [address] 04/10/2025 12:30 PM CDT Office Visit [facility] Surgery [id number] [place] [address], [address] [address] [place] [id number] [place] [phone] Scheduled Procedures Name Priority Associated Diagnoses Date/Ti me CREATION ARTERIOVENOUS (AV) FISTULA DIRECT 03/21/2025 8:50 AM C DT Health Maintenance Due Date Last Done Comments BONE DENSITY TESTING 1955 COLOGUARD (AGES 45-75) - COLON CA SCREENING 1955 CT COLONOGRAPHY - COLON CA SCREENING 1955 FIT - COLON CA SCREENING 1955 FLEX SIG - COLON CA SCREENING 1955 HIB VACCINE (1 of 1 - Risk 1-dose series) 09/14/1958 MENINGOCOCCAL GROUPS A/C/Y/W VACCINE (1 - Risk 2-dose series) 1959 MENINGOCOCCAL (Group B) VACCINE SHARED DECISION-MAKING (1 of 5 - Increased Risk) 1967 HEPATITIS C SCREENING 06/10/1975 DTAP/TDAP/TD VACCINES (1 - Tdap) 1976 LUNG CANCER SCREENING 2007 ZOSTER VACCINE (1 of 2) 2007 PNEUMOCOCCAL VACCINE 50+ (2 of 2 - PCV) 02/12/2011 02/12/2010 DIABETES RETINOPATHY SCREENING 05/09/2013 DIABETES-FOOT EXAM WITH MONOFILAMENT 01/02/2016 01/02/2015 Respiratory Syncytial Virus (RSV) Vaccine Pt: or over 60 yrs (1 - Risk 60-74 years 1-dose series) 2017 MAMMOGRAM 06/24/2024 06/24/2022, 06/24/2022 COVID-19 VACCINE ( season) 2024 09/19/2021, 01/18/2021, 12/18/2020 DEPRESSION SCREENING 11/23/2024 MEDICARE AWV CALENDAR YEAR 2024 DIABETES-HGB A1C 03/16/2025 09/15/2024, 04/2022, 05/22/2022, Additional history exists INFLUENZA VACCINE (Season Ended) 2025 08/29/2020, 08/30/2019, 09/05/2018, Additional history exists COLON MONITORING 05/09/2032 05/09/2022, 05/09/2022 COLONOSCOPY - COLON CA SCREENING 05/09/2032 05/09/2022, 05/09/2022 Colorectal Cancer Screening 05/09/2032 HEPATITIS B VACCINE Aged Out No longe r eligible based on patient's age to complete this topic HPV VACCINE Aged Out No longer eligi ble based on patient's age to complete this topic Procedures Procedure Name Priority Date/Time Associated Diagnosis Comments VAS BILAT MAPPING FOR HEMODIALYSIS Routine 02/27/2025 2:49 PM CDT ESRD (end stage renal disease) ENDOSCOPY, COLON, DIAGNOSTIC Routine 05/09/2022 7:07 AM CDT HEMOGLOBIN A1C Routine 06/13/2016 4:42 AM CDT from Last 3 Months or Most Recently Relevant to Health Maintenance Results * VAS Bilat Mapping for Hemodialysis (02/27/2025 2:49 PM CDT) Anatomical Region Laterality Modality Lower Extremity, Upper Extremity Ultrasound 02/27/2025 2:28 PM CDT Narrative Procedure Note Jamie Hidalgo MD - 02/27/2025 [facility] [address] [facility], [address] [place] [address] Vessel Mapping for Hemodialysis Report Pat.Name: JOELLE HYMAN.ID: [id number] St.Date: 02/27/2025 Exam Time: 2:28:00 PM Study Type:Vessel Mapping for Hemodialysis Age: 7 1955,69Y Sex: FEMALE Sonogrphr: Emanuel Bhandari RVT Pat. Stat.:Outpatient CPT - 4: 49722 Reason for Study: End Stage Renal Disease Procedures: Vessel Mapping for Hemodialysis Race: 2 Visit ID: [id number] ++++++++++++++++++++++++++++++++++++ SUMMARY: ++++++++++++++++++++++++++++++++++++ Patent axillary vein in the left arm. ++++++++++++++++++++++++++++++++++++ FINDINGS: ++++++++++++++++++++++++++++++++++++ Procedure: Duplex vein mapping was carried out in the left upper extremity. Study Quality: This study is of adequate technical quality. Mapping Lt: The left basilic vein in the axilla measured .86 cm and the axillary vein measured .54 cm. Signed 02/27/2025 02:53 PM Jamie Hidalgo MD Aster Vargas Shanna POULTRY INSPECTOR-SUPERINTENDENT MENAGERIE VASCULAR [facility] * ENDOSCOPY, COLON, DIAGNOSTIC (05/09/2022 7:07 AM CDT) Report Endoscopy POC _ Patient Name: Joelle Hyman Procedure Date: 05/09/2022 7:07 AM Date of : 1955 Admit Type: Inpatient Age: 66 Gender: Female Attending MD: Leonardo Garsia MD _ Procedure: Colonoscopy Indications: Melena Providers: Leonardo Garsia MD (Doctor) Referring MD: Cuco Negrete (Referring MD) Medicines: Monitored Anesthesia Care Estimated Blood Loss: Estimated blood loss: none. Procedure: After I obtained informed consent, the scope was passed under direct vision. Throughout the procedure, the patient's blood pressure, pulse, and oxygen saturations were monitored continuously. The Colonoscope was introduced through the ileostomy and advanced to the terminal ileum. The colonoscopy was performed without difficulty. The patient tolerated the procedure well. The quality of the bowel preparation was good. Findings: The terminal ileum appeared normal. about 4 fees small bowel examined, anastomosis with small bowel reached could not advance further . ruiz pouch also examined, from anus, about 15 cm pouch , some erythema. No bleeding . _ Impression: - The examined portion of the ileum was normal. 4 feet small bowel examined through ileostomy to ileo ileal anastomosis . NO COLON present 15 cm of hartmans pouch examined through rectum. Mild erythema . - No specimens collected. Recommendation: - Resume regular diet Procedure Code(s): --- Professional --- 74678, Ileoscopy, through stoma; diagnostic, including collection of specimen(s) by brushing or washing, when performed (separate procedure) --- Technical --- 07914, Ileoscopy, through stoma; diagnostic, including collection of specimen(s) by brushing or washing, when performed (separate procedure) Diagnosis Code(s): --- Professional --- K92.1, Melena (includes Hematochezia) --- Technical --- K92.1, Melena (includes Hematochezia) CPT copyright 2019 [employer]. All rights reserved. The codes documented in this report are preliminary and upon drafter mechanical review may be revised to meet current compliance requirements. Dr. Leonardo Garsia MD Leonardo Garsia MD 05/09/2022 1:29:49 PM This report has been signed electronically. Number of Addenda: 0 Note Initiated On: 05/09/2022 7:07 AM [facility] 05/09/2022 7:07 AM CDT Leonardo Garsia MD GI PROCEDURE ORDERAB LES Performing Organization Address City/[facility]/ZIP Co de Phone Number [facility] [place] [address] * (ABNORMAL) HEMOGLOBIN A1C (06/13/2016 4:42 AM CDT) Hemoglobin A1c 7.0(H) 4.2 - 6.3 % 06/13/2016 5:09 AM CDT [facility] Estimated Average Glucose 154 mg/dL 06/13/2016 5:09 AM CDT [facility] Whole Blood BLOOD SPECIMEN WITH EDTA / Unknown 06/13/2016 4:42 AM CDT 06/13/2016 4:50 AM CDT Katerina Enriquez MD LAB - CHEMISTRY LUZ MARIA GREEN [facility] [address] [place] [address] from Last 3 Months or Most Recently Relevant to Health Maintenance Advance Directives * Full Code (Latest Code Status on File) Date Activated Date Inactivated Comments 05/05/2022 9:22 PM 05/10/2022 4:36 PM * Full Code Date Activated Date Inactivated Comments 06/12/2016 12:12 PM 06/13/2016 5:06 PM * Full Code Date Activated Date Inactivated Comments 09/24/2015 2:08 PM 09/27/2015 12:58 PM * Full Code Date Activated Date Inactivated Comments 04/25/2014 7:41 PM 04/28/2014 7:12 PM * Full Code Date Activated Date Inactivated Comments 02/12/2010 6:40 AM 02/14/2010 12:21 AM Care Teams Combat Rifle Crewmember Relationship Specialty Start Date End Date Cuco Negrete DO [address] [place] [address] PCP - General Internal Medicine 06/19/22 [place] [address] [address] [place] [address] Cardiovascular Disease 03/21/13 [place] [address] [facility] [address] [place] [address] Vascular Surgery 01/23/14 [place] [address] [address] [facility] 07/31/14
--- OUTSIDE RECORDS SUMMARY | 2025-03-01 13:33 | XMS_ITS | Encounter Summary ---
Author Organization [facility] Address [address] [place] [address] Phone Care Team Providers Care Artificial Teeth Inspector Name Role Phone Vern Webster MD Primary Care Provider [phone] Reason for Visit * Reason Comments Med Refill Encounter Details Date Type Department Care Team (Late Contact Info) Description 05/03/2020 Refill [facility] [address] [facility] [address] [place], [place] [phone] Dale Morejon MD [address] [address] Social History Tobacco Use Types [...] Description 05/09/2025 12:40 PM CDT Office Visit [facility] [address], [address] [place] [address] Dale Morejon MD [address] [facility] 1 [place] [address] documented as of this encounter Visit Diagnoses Not on filedocumented in this encounter Care Teams Artificial Teeth Inspector Relationship Specialty Start Date End Date Vern Webster MD PCP - General Family Medicine 02/01/25 documented as of this encounter
--- OUTSIDE RECORDS SUMMARY | 2025-03-01 13:33 | XMS_ITS | Encounter Summary ---
Author Organization [facility] Address [address] [place] [address] Care Team Providers Care Wood Dowel Machine Operator Name Role Phone Son Lindquist MD Primary Care Provider [phone] Rome Downing MD Unavailable [phone] Cuco Negrete DO Primary Care Provider [phone] Trey Turcios MD Primary Care Provider [phone] Vern Webster MD Primary Care Provider [phone] Encounter Details Date Type Department Care Team (Late st Contact Info) Description 06/08/2019 Hospital Follow-up Call [facility] Telemetry [address] [place], [place] [id number] Megan Carias Social History Tobacco Use Types Packs/Day Years Used Date Smoking Tobacco: Every Day Cigarettes Smokeless Tobacco: Never Comments:started smoking at age 17 Alcohol Use Standard Drinks/Week Comments No 0 [...] Answer Date of Assessment Author Status No 06/05/2019 9:59 AM CDT Activ e * RETIRED Are you blind or do you have serious difficulty seeing, even when wearing glasses? Answer Date of Assessment Author Status No 06/05/2019 9:59 AM CDT Activ e * Do you have serious difficulty walking or climbing stairs? Answer Date of Assessment Author Status No 06/05/2019 9:59 AM CDT Mohan Pickard RN Active * Do you have difficulty dressing or bathing? Answer Date of Assessment Author Status No 06/05/2019 9:59 AM CDT Mohan Pickard RN Active * Because of a physical, mental, or emotional condition, do you have difficulty doing errands alone such as visiting a doctor's office or shopping? Answer Date of Assessment Author Status No 06/05/2019 9:59 AM CDT Mohan Pickard RN Active documented as of this encounter Mental Status * Because of a physical, mental, or emotional condition, do you have serious difficulty concentrating, remembering, or making decisions? Answer Entry Date Author Status No 06/05/2019 9:59 AM ELAINAT Mohan Pickard RN Active documented in this encounter Plan of Treatment Upcoming Encounters Date Type Department Care Team (Late st Contact Info) Description 05/24/2025 8:40 AM CDT Office Visit [facility] [address] [place], [place] [phone] Cesar Lucero MD [address] [facility] [address] [place] [address] 06/08/2025 2:15 PM CDT Office Visit [facility] [place] [phone] Rome Downing MD [facility]. 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 [facility] [address] [place] [address] [place] Pre Algebra Teacher CARDIOVASCULAR DISEASE 06/13/19 documented as of this encounter
--- OUTSIDE RECORDS SUMMARY | 2025-03-01 13:33 | XMS_ITS | Clinical Summary ---
Author Organization [facility] Address [address] [place] [id number] Phone Care Team Providers Care Event Crew Technician Name Role Phone Vern Webster MD Primary Care Provider [phone] Allergies Active Allergy Reactions Criticality Noted Date Comments Amoxicillin 06/03/2019 Amoxicillin-Pot Clavulanate 11/28/2020 Ciprofloxacin Rash Medium 08/15/2020 Other reaction(s): Urticaria Latex Hives 07/11/2009 Anaphylactic shock Sulfa Antibiotics Nausea And Vomiting,Vomiting 06/03/2019 Sulfamethoxazole-Trimeth oprim nausea,Nausea And Vomiting 08/05/2009 Tapentadol 07/09/2011 Other reaction(s): Other blisters Trimethoprim Nausea And Vomiting 06/03/2019 Other reaction(s): Other Wound Dressing Adhesive Other (see comments) 07/09/2011 blisters Medications ALPRAZolam (XANAX) 0.5 MG tablet One tab in the evening 0 019 Active omeprazole (PriLOSEC) [address] capsule One tab daily 0 019 Active insulin lispro (HumaLOG KWIKPEN) 100 UNIT/ML injection sliding scale, three times daily 0 018 Active Cholecalciferol (VITAMIN D3) 1000 units capsule One tab daily 0 019 Active Additional Information Patient taking differently: 2 tabletOral Daily, Reported on 10/11/2024 metoprolol succinate XL (TOPROL-XL) 50 MG 24 hr tablet Take 50 mg by mouth 2 (two) times a day Active gabapentin (NEURONTIN) 100 MG capsule Take 1 in the AM and 2 in the PM Active insulin glargine (LANTUS) 100 UNIT/ML injection Inject 52 Units under the skin every night Active magnesium oxide (MAG-OX) 400 mg tablet 400 mg in the morning and 400 mg in the evening. Active rivaroxaban (XARELTO) 15 MG tablet Take 15 mg by mouth 1 (one) time each day Take with food. Active lamoTRIgine (LaMICtal) 25 MG tablet Take 25 mg by mouth 1 (one) time each day Active cyancobalamin (VITAMIN B-12) 500 MCG tablet Take 500 mcg by mouth 1 (one) time each day Active Diclofenac Sodium 1 % gel Apply topically Active nitroglycerin (NITROSTAT) 0.[address] 0.4 mg under the tongue every 5 (five) minutes if needed for chest pain Active primidone (MYSOLINE) 50 MG tablet Take 125 mg by mouth in the morning and 125 mg in the evening. Active rosuvastatin (CRESTOR) 40 MG tablet Take 40 mg by mouth 1 (one) time each day Active carisoprodol (SOMA) 350 MG tablet Take 350 mg by mouth 3 (three) times a day if needed for muscle spasms Active B Complex Vitamins (B COMPLEX 1 PO) Take 500 mcg by mouth 1 (one) time each day Active tiotropium (SPIRIVA) 18 MCG per inhalation capsule Place 1 capsule into inhaler and inhale 1 (one) time each day Active sevelamer carbonate (Renvela) 800 MG tabletIndications:Seco ndary hyperparathyroidism (CMS-HCC) Take 1 tablet (800 mg total) by mouth in the morning and 1 tablet (800 mg total) at noon and 1 tablet (800 mg total) in the evening. Take with meals. Swallow tablet whole; do not crush, break, or chew.. 90 tablet 11 025 2025 Active cinacalcet (SENSIPAR) 30 MG tabletIndications:Seco ndary hyperparathyroidism (CMS-HCC) Take 1 tablet (30 mg total) by mouth 1 (one) time each day Take with food or shortly afer a meal. Swallow tablet whole; do not break or divide. 30 tablet 2 025 2024 Active ferrous sulfate 325 (65 Fe) MG tablet Take 1 tablet (325 mg total) by mouth in the morning and 1 tablet (325 mg total) before bedtime. 60 tablet 2 Active ferrous sulfate 325 (65 Fe) MG tablet TAKE 1 TABLET BY MOUTH TWICE A DAY 60 tablet 2 024 2024 Maxi ortiz(Amelieo rder) Active Problems Problem Noted Date Diagnosed Date Essential (primary) hypertension 11/28/2020 Chronic kidney disease, Stage V 06/03/2019 Secondary hyperparathyroidism 10/13/2018 Diabetes mellitus with renal manifestations, type II or unspecified type, uncontrolled 04/13/2018 Resolved Problems Problem Noted Date Diagnosed Date Resolved Date Acute renal failure syndrome 12/04/2022 06/04/2023 Iron deficiency 05/29/2022 12/04/2022 Anemia in chronic kidney disease 02/27/2022 12/04/2022 Hypercalcemia 12/10/2021 02/21/2022 Hyperlipidemia 06/07/2020 11/28/2020 Chronic kidney disease, stage 3 (moderate) 04/13/2018 06/03/2019 Encounters Date Type Department Care Team Description 02/09/2025 Refill [facility] [address] [facility] [address] [place] [address] Jyoti Hollis RN from Last 3 Months Immunizations Immunization Administration Dates Next Due Influenza Split High Dose Preservative Free IM 1 Family History Medical History Relation Comments Family history unknown Unknown Relation Status Comments Unknown Social History Tobacco Use Types Packs/Day Years Used Date Smoking Tobacco: Every Day Cigarettes Smokeless Tobacco: Never Tobacco Cessation:Ready to Q uit: Not Asked; Counseling Given: Not Answered Alcohol Use Standard Drinks/Week Comments Never 0 (1 standard drink = 0.6 oz pur e alcohol) AUDIT-C Answer Date Recorded Frequency of Alcohol Consumption Never 06/03/2019 Average Number of Drinks Not on file 019 Frequency of Binge Drinking Not on file 05/23 Comments Unknown Sex and Gender Information Value Date Recorded Sex Assigned at Not on file Legal Sex Female 9:32 AM [facility] Gender Identity Not on file Sexual Orientation Not on file Last Filed Vital Signs Vital Sign Reading Time Taken Comments Blood Pressure 159/85 02/07/2025 12:15 PM CDT Pulse 76 02/07/2025 12:15 PM CDT Temperature - - Respiratory Rate - - Oxygen Saturation - - Inhaled Oxygen Concentration - - Weight 80.7 kg (178 lb) 02/07/2025 12:15 PM CDT Height 152.4 cm (5') 02/07/2025 12:15 PM CDT Body Mass Index 34.76 02/07/2025 12:15 PM CDT Plan of Treatment Upcoming Encounters Date Type Department Care Team (Late st Contact Info) Description 05/09/2025 12:40 PM CDT Office Visit [facility] [address] [place] [address] Dale Morejon MD [address] [facility] [address] [place] [address] Health Maintenance Due Date Last Done Comments Pneumococcal PPSV23/PCV13 65 + Years / High and Highest Risk (1 of 4 - PCV) 1963 Diabetic Foot Exam 1967 Ophthalmology Exam 1967 Influenza Vaccine (Season Ended) 2025 08/29/2020, 08/30/2019, 09/05/2018, Additional history exists Insurance [employer] MED[employer]ARE Care Teams Event Crew Technician Relationship Specialty Start Date End Date Vern Webster MD PCP - General Family Medicine 02/01/25
--- OUTSIDE RECORDS SUMMARY | 2025-03-01 13:33 | XMS_ITS | Clinical Summary ---
Author Organization [facility] Address [facility] [place] [address] Care Team Providers Care Development Spec Name Role Phone Rome Downing MD Unavailable [phone] Vern Webster MD Primary Care Provider [phone] Allergies Active Allergy Reactions Criticality Noted Date Comments Amoxicillin Nausea and Vomiting 08/05/2009 Ciprofloxacin Rash Medium 08/15/2020 Latex Hives 07/11/2009 Anaphylactic shock Sulfa Antibiotics Nausea and Vomiting 9 Sulfamethoxazole-Trimeth oprim Nausea and Vomiting 08/05/2009 Tape Other (see comment) 07/09/2011 blisters Trimethoprim Nausea and Vomiting 06/03/2019 Medications ALPRAZolam 0.5 MG tablet Take 1 tablet (0.5 mg total) by mouth 3 (three) times daily as needed. 8 Active gabapentin 100 MG capsule Take 1 capsule (100 mg total) by mouth 2 (two) times daily. 0 9 Active omeprazole 40 MG capsule Take 1 capsule (40 mg total) by mouth 2 (two) times daily. 1 9 Active metoprolol succinate ER 50 MG 24 hr tablet Take 1 tablet (50 mg total) by mouth 2 (two) times daily. 0 Active Magnesium Oxide 400 MG Cap Take 1 tablet by mouth 2 (two) times daily. Active Vitamin D3, cholecalciferol , 2000 UNIT Tab tablet Take 2 tablets (4,000 Units total) by mouth daily. Active lamoTRIgine 25 MG tablet Take 3 tablets (75 mg total) by mouth daily. Active insulin glargine 100 UNIT/ML injection (PEN) Inject 52 Units into the skin after dinner. Active gabapentin 100 MG capsule Take 2 capsules (200 mg total) by mouth nightly at bedtime. Active vitamin B-12 500 MCG tablet Take 1 tablet (500 mcg total) by mouth daily. 30 tablet 2 Active carisoprodol (SOMA) 350 MG tablet Take 1 tablet (350 mg total) by mouth 3 (three) times daily. 2 Active calcitriol (ROCALTROL) 0.25 MCG capsule TAKE 1 CAPSULE (0.25 MCG TOTAL) BY MOUTH 1 (ONE) TIME EACH DAY 2 Active ferrous sulfate, 65 mg elemental, 325 (65 FE) MG tablet Take 1 tablet (325 mg total) by mouth 2 (two) times daily. 60 tablet 5 3 Active HUMALOG KWIKPEN 100 UNIT/ML injection (PEN) INJECT 15 UNITS INTO SKIN 3 TIMES A DAY 3 Active rosuvastatin (CRESTOR) 40 MG tablet Take 1 tablet (40 mg total) by mouth daily. 3 Active nitroglycerin (NITROSTAT) 0.[address] 1 tablet (0.4 mg total) under the tongue every 5 (five) minutes as needed for Chest Pain. Maximum of 3 doses. If using 3rd dose and no relief, call 911 for medical emergency. 25 tablet 1 4 Active ONETOUCH VERIO test strip 1 strip. 3 Active B-D ULTRAFINE III SHORT PEN 31G X 8 MM Misc USE ON INSULIN PENS 4 TIMES DAILY 3 Active aspirin EC (ASPIRIN LOW DOSE) 81 MG tablet TAKE 1 TABLET BY MOUTH EVERY DAY 90 tablet 4 Active albuterol sulfate HFA 108 (90 Base) MCG/ACT inhalerIndicati ons:Centrilobul ar emphysema (CMS/HCC HHS/HCC) INHALE 2 PUFFS INTO THE LUNGS EVERY 4 HOURS NEEDED FOR WHEEZE 8.5 g 2 4 Active tiotropium bromide-olodate rol (STIOLTO RESPIMAT) 2.5-2.5 MCG/ACT inhalerIndicati ons:Centrilobul ar emphysema ([facility]) Inhale 2 puffs into the lungs daily. 4 g 3 5 Active tiotropium (SPIRIVA HANDIHALER) 18 MCG inhalation capsuleIndicati ons:Centrilobul ar emphysema ([facility]) Place 1 capsule (18 mcg total) into inhaler and inhale daily. 30 capsule 3 5 03/01/20 25 Discontinu ed(Formula ry change) Active Problems Problem Noted Date Diagnosed Date Atrial fibrillation ([facility]) 01/19/2024 Iron deficiency anemia, unspecified 08/28/2022 Elevated troponin 03/24/2022 NSTEMI (non-ST elevation claudia cardial infarction) ([facility]) 03/24/2022 Anemia in chronic kidney disease 02/27/2022 ESRD (end stage renal disease) ([facility]) 07/08/2021 Essential hypertension 04/12/2020 Dyslipidemia 04/12/2020 Obstructive sleep apnea (adult) (pediatric) 07/24 Smoker 08/05/2019 Paroxysmal atrial fibrillation ([facility]) 06/30/2019 NSTEMI (non-ST elevated myoc ardial infarction) ([facility]) 06/05/2019 Simple chronic bronchitis ([facility]) 05/23 Hyperkalemia 06/05/2019 Chronic systolic congestive heart failure ([facility]) 06/05/2019 MACKENZIE (acute kidney injury) 06/05/2019 Secondary hyperparathyroidism ([facility]) 10/13/20 18 Left buttock abscess 09/01/2016 Epigastric pain 09/01/2016 Abdominal pain 09/24/2015 Vitamin D deficiency 01/23/2015 Overview (03/24/2022): Controlled with vitamin D, ergocalciferol, (DRISDOL) 02762 UNITS capsule Acute renal failure 01/12/2015 Sepsis ([facility]) 01/12/2015 Type 2 diabetes mellitus wit h diabetic nephropathy ([facility]) 01/03/2015 Overview (03/24/2022): Controlled with NOVOLOG FLEXPEN pen, insulin glargine (LANTUS SOLOSTAR) pen Proteinuria 01/03/2015 Stage 4 chronic kidney disease ([facility]) 01/03/2015 Insomnia 01/02/2015 Overview (03/24/2022): Controlled with traZODone (DESYREL) 50 MG tablet Chronic back pain 01/02/[address] ([facility]) 01/02/2015 longterm current use of insulin ([facility]/ [facility]) 07/28/2014 Mixed hyperlipidemia 05/01/2014 Overview (03/24/2022): Controlled with atorvastatin (LIPITOR) 40 MG tablet, fenofibrate (LOFIBRA) 54 MG tablet Herniated disc 06/27/2013 Overview (03/24/2022): Controlled with pregabalin (LYRICA) 75 MG capsule Nausea with vomiting 01/15/2010 Encounters Date Type Department Care Team Description 02/28/2025 Telephone [facility] - [facility] [address] [facility] [place] [address] Jose Enrique Begum MD Medication Problem 02/09/2025 Telephone [facility] [place] [address] Rome Downing MD Surgical Clearance ([facility] requesting cardiac clearance) 02/03/2025 2:20 PM CDT - 02/03/2025 11:59 PM CDT Hospital Encounter [facility] [address] [place] [address] Dale Morejon MD Discharge Disposition: Home or Self Care (Routine Discharge) 02/03/2025 Orders Only [facility] [address] [place] [address] Dale Morejon MD 02/03/2025 Travel 01/27/2025 [facility] [address] [facility] [place] [phone] Jose Enirque Begum MD Reschedule 01/18/2025 [facility] [address] [place] [address] Jose Enrique Begum MD Medication 12/08/2024 2:15 PM PLAN CHECKER Office Visit [facility] [address] [facility] [place] [phone] Rome Downing MD Follow Up 12/08/2024 Travel from Last 3 Months Immunizations Name Administration Dates Next Due Flucelvax 6 Months+ (Prefill ed Syringe) 08/29/2020 Fluzone 6 Months+ Quad (0.5 mL Prefilled Syringe) 08/30/2019 Influenza (Generic) 09/17/2015,09/06/2014,2008 Influenza Adult (Generic) 09/05/2018,,08/20/2017,2015,09/07/2015 MODERNA COVID-19 (12+) MRNA, LNP-S, PF, 100 MCG/ 0.5 ML DOSE 01/18/2021,12/18/2020 MODERNA COVID-19 (CARTOGRAPHIC DRAFTER KAYLAN SARAH), MRNA, LNP-S, PF, 50 MCG/ 0.25 ML DOSE 09/19/2021 Pneumococcal (Pneumovax 23) 08/30/2019, 0 Family History Medical History Relation Comments Diabetes Father Diabetes Mother Diabetes Other Relation Status Comments Father Mother Other Social History Tobacco Use Types Packs/Day Years Used Date Smoking Tobacco: Every Day Cigarettes 0.5 45 Smokeless Tobacco: Current Tobacco Cessation:Ready to Q uit: Not Asked; Counseling Given: Not Answered Alcohol Use Standard Drinks/Week Comments Not Currently [...] AM CDT Sexual Orientation Not on file Last Filed Vital Signs Vital Sign Reading Time Taken Comments Blood Pressure 138/62 12/08/2024 2:15 PM PLAN CHECKER Pulse 73 12/08/2024 2:10 PM PLAN CHECKER Temperature 36.6 C (97.9 F) 10/31/2024 3:16 PM PLAN CHECKER Respiratory Rate 18 10/31/2024 3:16 PM PLAN CHECKER Oxygen Saturation 89% 12/08/2024 2:10 PM PLAN CHECKER Inhaled Oxygen Concentration - - Weight 85.9 kg (189 lb 6.4 oz) 12/08/2024 2:10 P M PLAN CHECKER Height 152.4 cm (5') 12/08/2024 2:10 PM PLAN CHECKER Body Mass Index 36.99 12/08/2024 2:10 PM PLAN CHECKER Plan of Treatment Upcoming Encounters Date Type Department Care Team (Late st Contact Info) Description 05/24/2025 8:40 AM CDT Office Visit [facility] [address] [place] [address] Jose Enrique Begum MD [address] [facility] [address] [place], [place] [phone] 06/08/2025 2:15 PM CDT Office Visit [facility] [address] [place] [phone] Rome Downing MD Three [facility]. [address] [place] [address] Health Maintenance Due Date Last Done Comments Diabetes: Retinopathy Eye Exam 1975 Hepatitis C 1975 DTaP, Tdap and Td Vaccines (1 - Tdap) 1976 Zoster Vaccines (1 of 2) 2007 RSV Immunization or 60+ Years (1 - Risk 60-74 years 1-dose series) 2017 Pneumococcal Vaccine: 65+ Years (2 of 2 - PCV) 08/30/2020 08/30/2019, 02/12/2010 Annual Medicare Wellness Visit 2022 Dexa Scan (General) 2022 Colorectal Cancer Screening FIT/FOBT (1 Year) 03/25/2023 03/25/2022 Mammogram Screening 06/24/2024 06/24/2022 COVID-19 Vaccine ( season) 2024 09/19/2021, 01/18/2021, 12/18/2020 PHQ-2 (Physician [facility]) 11/23/2024 Lung Cancer Screening 03/02/2025 03/02/2024 , 12/08/2022, 12/09/2021 Hemoglobin A1C 03/16/2025 09/15/2024, 08/23, 04/08/2023, Additional history exists Lipid Panel 09/15/2025 09/15/2024, 08/23, 04/08/2023, Additional history exists Meningococcal B Vaccine Aged Out No l onger eligible based on patient's age to complete this topic Meningococcal Vaccine Aged Out No ifeanyi santiago eligible based on patient's age to complete this topic RSV Immunizations Under 20 Months Aged Out No longer eligible based on patient's age to complete this topic Medical Devices Implanted Type Area Beverage Steward Device Identifier Shelf Expiration Date Model / Serial / Lot Kylie Closure Device (Watchman)-12/25 Implanted:Qty: 1 on 01/19/2024 by Dg Page MD Closure Device Heart [employer] JESSE 06/10/2026 / / [id number] Procedures Procedure Name Priority Date/Time Associated Diagnosis Comments HC URNLS DIP STICK/TABLET RGNT AUTO W/O MICRO Routine 02/03/2025 2:30 PM CDT Chronic kidney disease, stage V (CMS/HCC HHS/HCC) URIC ACID BLOOD Routine 02/03/2025 2:30 PM CDT Chronic kidney disease, stage V (CMS/HCC HHS/HCC) RENAL FUNCTION PANEL Routine 02/03/2025 2:30 PM CDT Chronic kidney disease, stage V (CMS/HCC HHS/HCC) ALBUMIN URINE RANDOM W/CREATININE Routine 02/03/2025 2:30 PM CDT Chronic kidney disease, stage V (CMS/HCC HHS/HCC) PTH - INTACT Routine 02/03/2025 2:30 PM CDT Chronic kidney disease, stage V (CMS/HCC HHS/HCC) CBC W/DIFF AUTOMATED Routine 02/03/2025 2:30 PM CDT Chronic kidney disease, stage V (CMS/HCC HHS/HCC) LIPID PANEL Routine 09/15/2024 9:25 AM CDT Hyperlipemia Diabetes mellitus (CMS/HCC HHS/HCC) HEMOGLOBIN, GLYCOSYLATED Routine 09/15/2024 9:25 AM CDT Hyperlipemia Diabetes mellitus (CMS/HCC HHS/HCC) CT LUNG SCREENING Routine 03/02/2024 9:3 9 AM CDT Nicotine dependence, cigarettes, with other nicotine-induced disorders MG SCREENING W LINNETTE MARIELY DIGI Routine 06/24/2022 1:41 PM CDT Visit for screening mammogram OCCULT BLOOD, FECES Routine 03/25/2022 8 :00 PM CDT from Last 3 Months or Most Recently Relevant to Health Maintenance Results * (ABNORMAL) PTH - INTACT (02/03/2025 2:30 PM CDT) PTH INTACT 502.0(H) 18.4 - 80.1 PG/ML 02/03/2025 7:46 PM CDT [facility] 02/03/2025 2:30 PM CDT us Dale Morejon MD LABORATORY Final Result [facility] [address] [place] [address], [place] [phone] * (ABNORMAL) URINALYSIS W/ REFLEX TO MICROSCOPIC (02/03/2025 2:30 PM CDT) SPECIMEN TYPE URINE, UNSPECIFIED 02/04/2025 12:52 AM CDT [facility] COLOR (U) YELLOW 02/03/2025 7:22 PM CDT [facility] TRANSPARENCY CLEAR 02/03/2025 7:22 PM CDT [facility] SPECIFIC GRAVITY (U) 1.017 1.001 - 1.030 02/03/2025 7:22 PM CDT [facility] U PH 6.5 5.0 - 9.0 02/03/2025 7:22 PM CDT [facility] LEUKOCYTES (U) NEGATIVE NEGATIVE 02/03/2025 7:22 PM CDT [facility] NITRITES NEGATIVE NEGATIVE 02/03/2025 7:22 PM CDT [facility] PROTEIN RANDOM (U) 600(H) <30 MG/DL 02/03/2025 7:22 PM CDT [facility] GLUCOSE (U) 500(A) NORMAL MG/DL 02/03/2025 7:22 PM CDT [facility] KETONES MG/DL (U) NEGATIVE NEGATIVE MG/DL 02/03/2025 7:22 PM CDT [facility] UROBILINOGEN NORMAL NORMAL MG/DL 02/03/2025 7:22 PM CDT [facility] BILIRUBIN (U) NEGATIVE NEGATIVE MG/DL 02/03/2025 7:22 PM CDT [facility] BLOOD (U) 1+(A) NEGATIVE 02/03/2025 7:22 PM CDT [facility] MUCUS RARE /LPF 02/03/2025 7:22 PM CDT [facility] WBC/HPF 5 <6 /HPF 02/03/2025 7:22 PM CDT [facility] RBC/HPF 1 <6 /HPF 02/03/2025 7:22 PM CDT [facility] SQUAMOUS EPITHELIALS RARE /HPF 02/03/2025 7:22 PM CDT [facility] URINE SPECIMEN OBTAINED BY CLEAN CATCH PROCEDURE / Unknown 02/03/2025 2:30 PM CDT us Dale Morejon MD URINE ORDERABLES Final Result [facility] [address] [place] [address], [place] [phone] * (ABNORMAL) RENAL FUNCTION PANEL (02/03/2025 2:30 PM CDT) GLUCOSE 210(H) 70 - 99 MG/DL 02/03/2025 7:23 PM CDT [facility] BUN 60(H) 7 - 18 MG/DL 02/03/2025 7:23 PM CDT [facility] CREATININE S/P/B 4.63(H) 0.55 - 1.02 MG/DL 02/03/2025 7:23 PM CDT [facility] SODIUM S/P/B 139 136 - 145 MMOL/L 02/03/2025 7:23 PM CDT [facility] POTASSIUM S/P/B 4.3 3.5 - 5.1 MMOL/L 02/03/2025 7:23 PM CDT [facility] CHLORIDE S/P/B 106 97 - 115 MMOL/L 02/03/2025 7:23 PM CDT [facility] CO2 24.0 21 - 32 MMOL/L 02/03/2025 7:23 PM CDT [facility] CALCIUM S/P/B 9.0 8.5 - 10.1 MG/DL 02/03/2025 7:23 PM CDT [facility] ALBUMIN S/P/B 2.5(L) 3.4 - 5.0 G/DL 02/03/2025 7:23 PM CDT [facility] PHOSPHORUS 5.8(H) 2.5 - 4.9 MG/DL 02/03/2025 7:23 PM CDT [facility] ANION GAP 9.0 2 - 10 MMOL/L 02/03/2025 7:23 PM T [facility] BUN CREATININE RATIO 13.0 6 - 26 02/03/2025 7:23 PM T [facility] GFR ESTIMATE 10(L) >90 ML/MIN/1.7 3 M2 02/03/2025 7:23 PM T [facility] Comment: NOTE: eGFR is not calculated for patients <18 years of age or gender unknown. This is an estimated GFR calculation using the new CKD EPI creatinine equation without race and so does not require a correction factor for race. This estimated GFR should not be used for calculating drug doses. 02/03/2025 2:30 PM CDT us Dale Morejon MD LABORATORY Final Result [facility] [address] [place] [address], [place] [phone] * (ABNORMAL) ALBUMIN URINE RANDOM W/CREATININE (02/03/2025 2:30 PM CDT) Pathologist [facility] CREATININE RANDOM (U) 100.0 28 - 217 MG/DL 02/03/2025 7:56 PM CDT [facility] MICROALBUMIN (U) 584.0(H) <2.0 mg/dL 02/03/2025 7:56 PM CDT [facility] ALBUMIN/CREAT RATIO 5,840.0(H ) <30 MG/G 02/03/2025 7:56 PM CDT [facility] URINE SPECIMEN / Unknown 02/03/2025 2:30 PM CDT Dale Morejon MD URINE ORDERABLES Final Result [facility] [address] [place] [address], [place] [phone] * (ABNORMAL) CBC W/DIFF AUTOMATED (02/03/2025 2:30 PM CDT) Pathologist [facility] WBC 13.74(H) 4.50 - 11.00 x10'3/uL 02/03/2025 2:35 PM CDT [facility] RBC 4.51 4.00 - 5.20 x10'6/uL 02/03/2025 2:35 PM CDT [facility] HGB 13.4 12.0 - 16.0 G/DL 02/03/2025 2:35 PM CDT [facility] HCT 42.4 38.0 - 48.0 % 02/03/2025 2:35 PM CDT [facility] MCV 94.0 80.0 - 100.0 FL 02/03/2025 2:35 PM CDT [facility] MCH 29.7 26.0 - 34.0 PG 02/03/2025 2:35 PM CDT [facility] MCHC 31.6 31.0 - 37.0 G/DL 02/03/2025 2:35 PM CDT [facility] RDW 15.2(H) 11.6 - 14.8 % 02/03/2025 2:35 PM CDT [facility] PLT 289 130 - 400 x10'3/uL 02/03/2025 2:35 PM CDT [facility] MPV 11.1 7.0 - 12.0 FL 02/03/2025 2:35 PM CDT [facility] CBC COMMENT AUTOMATED RBC MORPHOLOGY AND PLATELET EVALUATION NORMAL 02/03/2025 2:35 PM CDT [facility] NEUTROPHILS % 65.7 40.0 - 74.0 % 02/03/2025 2:35 PM CDT [facility] LYMPHOCYTES % 22.9 14.0 - 46.0 % 02/03/2025 2:35 PM CDT [facility] MONOCYTES % 8.6 4.0 - 13.0 % 02/03/2025 2:35 PM CDT [facility] EOSINOPHILS 2.0 0.0 - 7.0 % 02/03/2025 2:35 PM CDT [facility] BASOPHILS 0.4 0.0 - 3.0 % 02/03/2025 2:35 PM CDT [facility] IMMATURE GRANS % 0.4 0.0 - 0.43 % 02/03/2025 2:35 PM CDT [facility] NRBC % 0.0 % 02/03/2025 2:35 PM CDT [facility] ABS. NEUTROPHILS TOTAL 9.03(H) 1.69 - 7.81 x10'3/uL 02/03/2025 2:35 PM CDT [facility] ABS. LYMPHOCYTES 3.15 0.21 - 5.42 x10'3/uL 02/03/2025 2:35 PM CDT [facility] ABS. MONOCYTES 1.18 0.04 - 1.37 x10'3/uL 02/03/2025 2:35 PM CDT [facility] ABS. EOSINOPHILS 0.27 0.00 - 0.68 x10'3/uL 02/03/2025 2:35 PM CDT [facility] ABS. BASOPHILS 0.06 0.00 - 0.08 x10'3/uL 02/03/2025 2:35 PM CDT [facility] ABS. IMMATURE GRANULOCYTES 0.05 0.00 - 0.06 x10'3/uL 02/03/2025 2:35 PM CDT [facility] ABS. NUCLEATED RBC'S 0.00 0.00 - 0.01 x10'3/uL 02/03/2025 2:35 PM CDT [facility] 02/03/2025 2:30 PM CDT us Dale Morejon MD LABORATORY Final Result [facility] [address] [place] [address] [place] [address], [place] * URIC ACID BLOOD (02/03/2025 2:30 PM CDT) URIC ACID 5.9 2.6 - 6.0 MG/DL 02/03/2025 7:23 PM CDT [facility] 02/03/2025 2:30 PM CDT us Dale Morejon MD LABORATORY Final Result [facility] [address] [place] [address], [place] [phone] * (ABNORMAL) HEMOGLOBIN, GLYCOSYLATED (09/15/2024 9:25 AM CDT) HGB A1C 8.4(H) <5.7 % 09/15/2024 3:35 PM CDT [facility] Comment: ADA GUIDELINES 2010 5.7 TO 6.4% INCREASED RISK OF DIABETES > OR = 6.5% CONSISTENT WITH DIABETES ESTIMATED AVG GLUCOSE 194 mg/dL 09/15/2024 3:35 PM CDT [facility] 09/15/2024 9:25 AM CDT us Carlos Enrique Wray NP LABORATORY Final Result [facility] [address] [place] [address], [place] [phone] * (ABNORMAL) LIPID PANEL (09/15/2024 9:25 AM CDT) Pathologist [facility] CHOLESTEROL 128 <200 MG/DL 09/15/2024 2:53 PM CDT [facility] TRIGLYCERIDES 215(H) <150 MG/DL 09/15/2024 2:53 PM CDT [facility] HDL 43 >40.0 MG/DL 09/15/2024 2:53 PM CDT [facility] LDL (CALCULATED) 42 <100 MG/DL 09/15/2024 2:53 PM CDT [facility] NON HDL CHOLESTEROL 85 <130 MG/DL 09/15/2024 2:53 PM CDT [facility] CHOL/HDL RATIO 3.0 0.0 - 4.5 09/15/2024 2:53 PM CDT [facility] VLDL CALCULATION 43 5 - 55 MG/DL 09/15/2024 2:53 PM CDT [facility] LIPID INTERPRETATION 09/15/2024 2:53 PM CDT [facility] Comment: NIH CONCENSUS REPORT RECOMMENDATIONS: ADULT CHILD LOW RISK: CHOLESTEROL <200 <170 TRIGLYCERIDE <150 --- HDL >=60 --- LDL <100 <110 BORDERLINE: CHOLESTEROL 200-239 170-199 TRIGLYCERIDE 150-199 --- HDL 40-59 --- LDL 100-159 110-129 HIGH RISK: CHOLESTEROL >=240 >=200 TRIGLYCERIDE >=200 --- HDL <40 --- LDL >=160 >=130 09/15/2024 9:25 AM CDT Carlos Enrique Wray NP LABORATORY Final Result [facility] [address] [place] [address], * CT LUNG SCREENING (03/02/2024 9:39 AM CDT) Anatomical Region Laterality Modality Chest Computed Tomogra phy 03/16/2024 4:12 PM CDT Impressions 03/16/2024 4:16 PM CDT IMPRESSION: 1. LUNG-RADS category 1: Negative 2. LUNG-RADS category S: Negative, no new/unknown potentially significant incidental findings requiring urgent additional evaluation. 3. Other incidental findings as above. RECOMMENDATIONS: Continued routine annual LDCT lung screening. Suggest next exam on or around February 2025 Ordered By: JOSE ENRIQUE BEGUM Interpreted By: Anibal Bonilla MD, 03/16/2024 4:12 PM Narrative 03/16/2024 4:16 PM CDT EXAM: LUNG SCREENING LOW-DOSE CT THORAX WITHOUT CONTRAST DATE: 03/02/2024 HISTORY: Asymptomatic patient with history of smoking meeting CMS high-risk criteria for lung screening. * 68 years * 30 pack years or greater * Current smoker or have quit smoking within the last 15 years COMPARISON: 12/08/2022 TECHNIQUE: Noncontrast, helical, low-dose CT (LDCT) chest per standard departmental protocol. A dose lowering technique was used for this procedure, which may include, but is not limited to, dose reduction techniques, automated exposure control, and/or the use of iterative reconstruction, in accordance with ALARA (As Low As Reasonably Achievable)/Image Gently principle. FINDINGS: Lung Screening Specific (LUNG-RADS): Granulomata do not require follow-up Potentially Significant Incidentals (LUNG-RADS category S): Negative Pulmonary Incidentals: Mosaic lungs from air-trapping and COPD. Other Incidentals: No acute finding; see last year report Procedure Note Anibal Bonilla MD - 03/16/2024 EXAM: LUNG SCREENING LOW-DOSE CT THORAX WITHOUT CONTRAST DATE: 03/02/2024 HISTORY: Asymptomatic patient with history of smoking meeting CMShigh-risk criteria for lung screening. * 68 years * 30 pack years or greater * Current smoker or have quit smoking within the last 15 years COMPARISON: 12/08/2022 TECHNIQUE: Noncontrast, helical, low-dose CT (LDCT) chest per standarddepartmental protocol. A dose lowering technique was used for thisprocedure, which may include, but is not limited to, dose reductiontechniques, automated exposure control, and/or the use of iterativereconstruction, in accordance with ALARA (As Low As ReasonablyAchievable)/Image Gently principle. FINDINGS: Lung Screening Specific (LUNG-RADS): Granulomata do not requirefollow-up Potentially Significant Incidentals (LUNG-RADS category S): Negative Pulmonary Incidentals: Mosaic lungs from air-trapping and COPD. Other Incidentals: No acute finding; see last year report IMPRESSION: 1. LUNG-RADS category 1: Negative 2. LUNG-RADS category S: Negative, no new/unknown potentially significantincidental findings requiring urgent additional evaluation. 3. Other incidental findings as above. RECOMMENDATIONS: Continued routine annual LDCT lung screening. Suggestnext exam on or around February 2025 Ordered By: JOSE ENRIQUE BEGUM Interpreted By: Anibal Bonilla MD, 03/16/2024 4:12 PM us Jose Enrique Begum MD CT Final Result * MG SCREENING W LINNETTE MARIELY DIGI (06/24/2022 1:41 PM CDT) Anatomical Region Laterality Modality Breast Bilateral Mammography 06/24/2022 2:15 PM CDT Impressions 06/24/2022 2:17 PM CDT IMPRESSION: 1. No mammographic evidence of malignancy. 2. BI-RADS Category 1 - negative. MQSA BI-RADS Categories: Category 0 - needs additional imaging evaluation. Category 1 - negative. Category 2 - benign findings. Category 3 - probably benign findings, but short interval follow-up is recommended. Category 4 - suspicious abnormality and biopsy should be considered though the lesion may well be benign. Category 5 - highly suggestive of malignancy and appropriate action should be taken. Category 6 - known biopsy-proven malignancy A) A negative report should not delay a biopsy if a dominant or clinically suspicious mass is present. B) Adenosis and dense breasts may obscure an underlying neoplasm. C) Study interpreted with computer aided detection. Ordered By: CUCO NEGRETE Interpreted By: Pili Jaramillo, 06/24/2022 2:15 PM Narrative 06/24/2022 2:17 PM CDT IMAGING STUDIES: Bilateral screening mammograms with computer-aided detection with 2-D and 3-D imaging. Tomosynthesis. DATE: 06/24/2022 1:20 PM HISTORY: screening . COMPARISON: Reestablish baseline TISSUE TYPE: The breast tissue is almost entirely fatty. FINDINGS: 1. Bilateral screening mammograms with computer detection with 2-D and 3-D imaging. Tomosynthesis. Fatty replaced fibroglandular tissue pattern is present. Benign calcifications 2. No malignant microcalfcifications, new dominant masses, or architectural distortion. 3. No skin thickening or nipple retraction. Axillary regions are not well evaluated due to difficulty in patient positioning.. Visualized portions without gross abnormality. 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 Advance Directives and Living Will 09/04/2018 12:00 AM ADVANCED DIRECTIVES * Full Code (Latest Code Status on File) Date Activated Date Inactivated Comments 01/19/2024 12:49 PM 01/19/2024 7:12 PM * Full Code Date Activated Date Inactivated Comments 04/23/2022 3:18 PM 04/23/2022 8:09 PM * Full Code Date Activated Date Inactivated Comments 03/24/2022 2:20 AM 03/26/2022 3:05 PM * Full Code Date Activated Date Inactivated Comments 06/05/2019 10:05 AM 06/07/2019 11:02 PM Care Teams Development Spec Relationship Specialty Start Date End Date Vern Webster MD [address] [place] [id number] PCP - General FAMILY PRACTICE 06/07/23 Rome Downing MD [facility] [address] [place] [address] [employer] Associate CARDIOVASCULAR DISEASE 06/13/19
== END 2025-03-01 12:07 | disposition home or self-care (01) ==
LOC: ANHIMG 12:08
PROVIDERS: PCP Family Medicine; Visit Provider Family Medicine
DX: Z78.0 Asymptomatic menopausal state (principal); M85.88 Other specified disorders of bone density and structure, other site; M81.0 Age-related osteoporosis without current pathological fracture
CPT/HCPCS: 77080